=== PATIENT | male | born 1935 | race Caucasian/White ===

== ENCOUNTER 2019-09-15 14:46 | Inpatient (IN) ==
[2019-09-15] MEDS ORDERED: FUROSEMIDE 40 MG/4 ML VIAL IV STA (15:07)
[2019-09-15 15:35] LABS: Hematocrit (blood only) 43.5 % (42-52); Hemoglobin 12.3 g/dL (14.0-18.0); Mean Corpuscular Hemoglobin 26.5 pg (25-34); Mean Corpuscular Hgb Conc 28.3 g/dL (32-36); Mean Corpuscular Volume 93.8 fL (80-100); Mean Platelet Volume 10.7 fL (7.4-10.4); Platelet Count 188 K/uL (130-400); RDW Standard Deviation 67.2 fL (36.4-46.3); Red Blood Count 4.64 M/uL (4.7-6.1); White Blood Count 6.44 K/uL (4.8-10.8)
--- NOTE | 2019-09-15 15:36 | XRay Report ---
XR chest 1V portable CLINICAL HISTORY: Leg swelling. COMPARISON STUDY: Chest radiograph October 19, 2009. FINDINGS: Patient is mildly rotated. There is no pneumothorax. Note is made of mild cardiomegaly. The re are trace bilateral pleural effusions. There is pulmonary vascular congestion. IMPRESSION: Pulmonary vascular congestion with trace bilateral pleural effusions. ACT 112: Negative or not required by law. Results electronically sent 09/15/2019 3:35 PM to: Rajeev Portillo MD Electronically signed by: Tomy Shetty M.D. 09/15/2019 3:35 PM
[2019-09-15 15:45] LABS: Alanine Aminotransferase 16 U/L (12-78); Albumin Level 3.3 gm/dl (3.4-5.0); Aspartate Aminotransferase 20 U/L (15-37); BUN Creatinine Ratio 15.3 (10-20); Blood Urea Nitrogen 44 mg/dl (7-18); Calcium 8.6 mg/dl (8.5-10.1); Carbon Dioxide 26 mmol/L (21-32); Chloride 111 mmol/L (98-107); Creatinine Clr Calc Pharmacy 23.8 ml/min; Est GFR (African American) 22.2; Est GFR (Non-African American) 19.2; Glucose 142 mg/dl (70-99); Magnesium 2.4 mg/dl (1.8-2.4); Potassium 4.8 mmol/L (3.5-5.1); Sodium 142 mmol/L (136-145)
[2019-09-15 15:50] LABS: Albumin Globulin Ratio 0.9 (0.9-2); Alkaline Phosphatase 126 U/L (45-117); Bilirubin,Total 0.9 mg/dl (0.2-1); Globulin 3.5 gm/dl (2.5-4.0); NT Pro B Type Natriuretic Pept 6662 pg/ml (0-1800); Total Protein 6.8 gm/dl (6.4-8.2); Troponin I < 0.015 ng/ml (0-0.045)
[2019-09-15 15:52] LABS: INR 1.2 (0.9-1.1); Partial Thromboplastin Ratio 1.2; Partial Thromboplastin Time 32.8 Seconds (21.0-31.0); Prothrombin Time 11.9 Seconds (9.0-12.0)
[2019-09-15 15:56] LABS: Anisocytosis Present; Basophils # (auto) 0.05 K/uL (0-0.2); Basophils % (auto) 0.8 %; Eosinophils # (auto) 0.27 K/uL (0-0.5); Eosinophils % (auto) 4.2 %; Lymphocytes # (auto) 0.91 K/uL (1.2-3.4); Lymphocytes % (auto) 14.1 %; Neutrophils # (auto) 4.31 K/uL (1.4-6.5); Neutrophils % (auto) 66.9 %; Ovalocytes 1+
[2019-09-15 17:30] LABS: Appearance Urine Clear (Clear); Bacteria Urine Automated Negative (Negative); Bilirubin Urine Negative (Negative); Blood Urine 3+ (Negative); Color Urine Yellow; Glucose Urine UA Negative (Negative); Ketones Urine Negative (Negative); Leukocyte Esterase Urine Trace (Negative); Nitrite Urine Negative (Negative); Protein Urine Negative (Negative); RBC Urine Automated >30 /hpf (0-4); Specific Gravity Urine 1.013 (1.000-1.030); Urobilinogen Urine Negative (Negative)
--- NOTE | 2019-09-15 17:42 | History & Physical Report ---
Date of Service September 15, 2019 Assessment & Plan (1) Acute exacerbation of CHF (congestive heart failure): Admit to PCU on telemetry, Vital signs every 4 hours, Strict in and out, Daily weight, Given Lasix 40 mg IV x1 in the ER, continue Lasix 40 mg daily, and titrate up as needed to achieve 1.5 L negative fluid balance daily. Monitor kidney is in the same time because patient has CKD stage IV(possibly acute on chronic), [place] records are not available. DVT prophylaxis SCDs and teds, because patient has 3+ blood in urine so medical anticoagulation would probably cause hematuria, Start medical DVT prophylaxis after rechecking urine tomorrow. Physical and Occupational Therapy for gait and balance. Monitor electrolytes and replenish, Restrict free p.o. water intake to 1200 mils per day, Full code Present on Admission?: Yes (2) A-fib: Continue apixaban 2.5 mg p.o. twice daily. Present on Admission?: Yes (3) CKD (chronic kidney disease), stage IV: Hold pantoprazole 40 mg p.o. twice daily since it may worsen kidney function in the setting of CHF exacerbation. Avoid nephrotoxic agents. Per patient he was CKD stage III 1 month ago when he checked in with his computer lab para professional at [place]. Now creatinine is 2.88, worsening. Continue monitoring Present on Admission?: Yes (4) Leg swelling: Both lower extremities are edematous but right lower extremity is notably swollen that also covered with rash and warm and appears to be cellulitis. Started Zosyn empirically. Patient does not have elevated white blood cell count. Present on Admission?: Yes (5) Heart aneurysm: Will check TTE Consider consulting cardiology after receiving TTE result. Present on Admission?: Yes (6) Diabetes mellitus type 2 in obese: Accu-Cheks before meals and at bedtime, sliding scale insulin NovoLog correction factor of 20 and carbohydrate ratio of 7. Continue insulin glargine 19 units subacute nightly. Present on Admission?: Yes History of Present Illness Chief Complaint: Shortness of breath, weight gain right lower extremity cellulitis Primary Care Provider: Priti Saldivar MD The patient is an 83 years old male with past medical history of aneurysm of his heart?, Diabetes mellitus type 2, GERD , congestive heart failure, atrial fibrillation's and amiodarone, hypertension, COPD who was sent from the [facility] to [facility] (per patient and his family) to take care of his lower extremity edema and cellulitis associated with shortness of breath. Patient reports gaining at least 30 pounds in the past 2 months. Patient reports that his shortness of breath is worse on exertion and he has difficulty getting around in his house due to shortness of breath. Patient repo rts having a right lower extremity cellulitis for approximately 3 to 4 days and he was given Keflex 500 mg p.o. daily by his PCP at [place]. Patient denies fever, chills, chest pain, abdominal pain, frequency, urgency. Labs are reviewed: WBC 6.44, hemoglobin 12.3, hematocrit 43.5, platelets 188, PT 11.9, INR 1.2, APTT 32.8, sodium 142, potassium 4.8, chloride 111, carbon dioxide 26, anion gap 5, BUN 44, creatinine 2.88 (there is no other value in the system available since patient goes to [place] and his records are not sent with him, but patient reports that he has computer lab para professional at [facility] who follows him every couple of months), GFR 19.2, calcium 8.6, magnesium 2.4, total bilirubin 0.9, AST 20, ALT 16, alkaline phosphatase 126, troponin 0.015, BNP 6662, total protein 6.8, albumin 3.3, globulin 3.5. Urine is yellow clear 3+ blood, leukocyte Estrace trace, urine WBCs 1-5, RBCs 30. Chest x-rays pulmonary vascular congestion with trace bilateral pleural effusion. Decision was made to admit patient to PCU on telemetry for acute CHF exacerbation and right lower extremity cellulitis. Allergies Allergy/AdvReac Type Severity Reaction Status Date / Time chlorpropamide Allergy Unknown Unknown Verified 09/15/19 17:09 chlorthalidone Allergy Unknown Unknown Verified 09/15/19 17:09 Sulfa (Sulfonamide Allergy Unknown Hives Verified 09/15/19 17:09 Antibiotics) pravastatin AdvReac Unknown Muscle Pain Verified 09/15/19 17:09 simvastatin [From Zocor] AdvReac Unknown Muscle Pain Verified 09/15/19 17:09 Home Medications Home Medications Medication Instructions Recorded Confirmed Type albuterol sulfate 2 puff INHALATION 6XD PRN 09/15/19 09/15/19 History amlodipine 5 mg PO QAM 09/15/19 09/15/19 History apixaban 2.5 mg PO BID 09/15/19 09/15/19 History atenolol 50 mg PO QAM 09/15/19 09/15/19 History cephalexin 500 mg PO DAILY 09/15/19 09/15/19 History furosemide 20 mg PO QAM 09/15/19 09/15/19 History insulin aspart U-100 [Novolog 6 unit SUBCUT QAM 09/15/19 09/15/19 History U-100 Insulin aspart] insulin aspart U-100 [Novolog 10 unit SUBCUT QPM 09/15/19 09/15/19 History U-100 Insulin aspart] insulin glargine [Lantus U-100 35 unit SUBCUT HS 09/15/19 09/15/19 History Insulin] losartan 100 mg PO QAM 09/15/19 09/15/19 History pantoprazole 40 mg PO BID 09/15/19 09/15/19 History Past Med/Surg History Medical History A-fib Surgical History No pertinent past surgical history Family History Other No pertinent family history in first degree relatives Social History marital status: current occupational status: retired Feels Safe at Home: Yes Smoking Status: Former smoker Review of Systems Review of Systems: All systems reviewed & are unremarkable except as noted in HPI & below Physical Exam Constitutional: WD/WN, vitals as above well developed and + ill appearing Eyes: PERRL, conjunctivae normal, anicteric sclerae ENMT: external ear and nose normal, oropharynx normal Neck: trachea midline, no thyromegaly Respiratory: + respiratory distress, + labored breathing and + uses accessory muscles Auscultation: + crackles and + wheezes Cardiovascular: Rate/Rhythm: + irregularly irregular Heart Sounds: normal S1, normal S2 and + murmur Palpation: + palpable S4 Vessels: + JVD and dorsalis pedis pulses present Extremities: + pedal edema Gastrointestinal (Abdomen): normal bowel sounds, soft, nontender, no hepatosplenomegaly Musculoskeletal: no cyanosis or clubbing, extremities motor strength 5/5 Skin: no rashes, warm and dry Neurologic: patellar DTR's 2+ bilat, sensation intact Psychiatric: A+Ox3, euthymic affect Lymphatic: no cervical or axillary lymphadenopathy Results & Data Vital Signs (Past 12 Hours) Vital Signs Temp Pulse Resp BP Pulse Ox 09/15/19 17:00 73 25 H 82 L 09/15/19 16:30 78 19 92 09/15/19 16:01 71 16 116/87 90 09/15/19 16:00 63 24 91 09/15/19 15:52 66 24 143/87 H 92 09/15/19 15:30 71 17 131/78 92 09/15/19 15:05 73 22 91 09/15/19 15:03 36.5 C 71 18 141/97 H 90 09/15/19 15:00 65 25 H 141/97 H 91 Code Status & VTE Plan Code Status Full code VTE Prophylaxis Plan VTE Prophylaxis will be ordered: Yes PG Care Time/CCT Total # of Minutes Spent Total Time Spent with Patient: Total time spent is greater than 50% in coordination of care (as documented) at patient's floor/unit and/or counseling patient: Coding Level of Care Code 32868 Initial Inpt Care Lvl 3 Diagnoses Acute exacerbation of CHF (congestive heart failure) I50.9 Heart failure type: unspecified A-fib I48.91 CKD (chronic kidney disease), stage IV N18.4 Leg swelling M79.89 Heart aneurysm I25.3 Diabetes mellitus type 2 in obese E11.69; E66.9 (1) Acute exacerbation of CHF (congestive heart failure) Heart failure type: unspecified Qualified Code(s): I50.9 - Heart failure, unspecified
--- NOTE | 2019-09-15 17:47 | Emergency Department Note ---
Entered by Jess Basilio acting as a scribe for History of Present Illness General Chief complaint: Leg Injury/Pain Time Seen by Provider: 09/15/19 14:53 Source: patient History of Present Illness Onset (ago): month(s) (a few months) Location: lower extremity (right) Quality: + other (right leg swelling) Associated symptoms: + shortness of breath and + other (Positive redness. Negative recent changes in soaps, detergents, contacts with plants, tobacco use. 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 He reports he went to the [facility] for redness and swelling in his RLE and was referred to the ED. He notes he was short of breath recently and went to a handkerchief cutter who placed him on a nebulizer. The patient states he has had recent weight gain but denies recent changes in soaps, detergents, contacts with plants, tobacco use. Home Medications Home Medications Medication Instructions Recorded Confirmed Type albuterol sulfate 2 puff INHALATION 6XD PRN 09/15/19 09/15/19 History amlodipine 5 mg PO QAM 09/15/19 09/15/19 History apixaban 2.5 mg PO BID 09/15/19 09/15/19 History atenolol 50 mg PO QAM 09/15/19 09/15/19 History cephalexin 500 mg PO DAILY 09/15/19 09/15/19 History furosemide 20 mg PO QAM 09/15/19 09/15/19 History insulin aspart U-100 [Novolog 6 unit SUBCUT QAM 09/15/19 09/15/19 History U-100 Insulin aspart] insulin aspart U-100 [Novolog 10 unit SUBCUT QPM 09/15/19 09/15/19 History U-100 Insulin aspart] insulin glargine [Lantus U-100 35 unit SUBCUT HS 09/15/19 09/15/19 History Insulin] losartan 100 mg PO QAM 09/15/19 09/15/19 History pantoprazole 40 mg PO BID 09/15/19 09/15/19 History Allergies Allergy/AdvReac Type Severity Reaction Status Date / Time chlorpropamide Allergy Unknown Unknown Verified 09/15/19 17:09 chlorthalidone Allergy Unknown Unknown Verified 09/15/19 17:09 Sulfa (Sulfonamide Allergy Unknown Hives Verified 09/15/19 17:09 Antibiotics) pravastatin AdvReac Unknown Muscle Pain Verified 09/15/19 17:09 simvastatin [From Zocor] AdvReac Unknown Muscle Pain Verified 09/15/19 17:09 Past Med/Surg History Medical History A-fib Surgical History No pertinent past surgical history Family History Other No pertinent family history in first degree relatives Social History marital status: current occupational status: retired Feels Safe at Home: Yes Smoking Status: Former smoker Review of Systems See HPI for pertinent positives & negatives. and A total of 10 systems reviewed and were otherwise negative Physical Exam Vital Signs Vital Signs - 24 hr 09/15/19 15:00 09/15/19 15:03 09/15/19 15:05 Temperature 36.5 C Temperature Source Oral Pulse Rate 65 71 73 Pulse Rate from SpO2 Sensor 65 82 Respiratory Rate 25 H 18 22 Blood Pressure 141/97 H 141/97 H Blood Pressure Mean 103 111 Pulse Oximetry 91 90 91 Oxygen Delivery Method Room Air Sepsis Recent Fever Within 48 Hours No Sepsis Action Taken by Nursing No Action Required 09/15/19 15:30 09/15/19 15:52 09/15/19 16:00 Temperature Temperature Source Pulse Rate 71 66 63 Pulse Rate from SpO2 Sensor 72 55 L Respiratory Rate 17 24 24 Blood Pressure 131/78 143/87 H Blood Pressure Mean 93 97 Pulse Oximetry 92 92 91 Oxygen Delivery Method Room Air Sepsis Recent Fever Within 48 Hours Sepsis Action Taken by Nursing 09/15/19 16:01 09/15/19 16:30 09/15/19 17:00 Temperature Temperature Source Pulse Rate 71 78 73 Pulse Rate from SpO2 Sensor 73 82 70 Respiratory Rate 16 19 25 H Blood Pressure 116/87 Blood Pressure Mean 92 Pulse Oximetry 90 92 82 L Oxygen Delivery Method Sepsis Recent Fever Within 48 Hours Sepsis Action Taken by Nursing GENERAL: Well appearing, well nourished, NAD, non-toxic. Wearing glasses. EYE EXAM: Normal conjunctiva. PERRL, no anisocoria and EOM's grossly intact w/o pain. OROPHARYNX: Moist mucous membranes. Grossly normal dentition. NECK: Supple, no nuchal rigidity, no adenopathy, non-tender. No signs of meningismus. LUNGS: Clear to auscultation. Normal chest wall mechanics. HEART: NSR, no MRG. ABDOMEN: Abdomen soft, non-tender, normo-active bowel sounds, no masses, no rebound or guarding. BACK: No CVA TTP. SKIN: No bruising. Redness over RLE. UPPER EXTREMITIES: Upper extremities are grossly normal. LOWER EXTREMITIES: 4+ pitting edema bilaterally. Raised macular area over the mid medial right pelletier. Blanches, no crepitus. Not warm. Compartments soft. NVI distally. No calf pain. NEURO EXAM: A&O x3, cranial nerves II-XII grossly intact, normal speech, moves all 4 extremities on command w/o issue. Course Course 1500: Past medical records reviewed. The patient was evaluated in room B7. A complete history and physical exam was performed. 1614: Discussed the patient's case with Dr. Mendez, [facility] Hospitalist. The patient will be evaluated for further management. Administered Medications Discontinued Medications Furosemide (Lasix) 40 mg IV NOW STA Stop: 09/15/19 15:08 Last Admin: 09/15/19 15:56 Dose: 40 mg Documented by: [id number] Medical Decision Making Differential Diagnosis Differential diagnosis: Etiologies such as infections, reactive airway disease, pneumonia, pneumothorax, COPD, CHF, cardiac ischemia, pulmonary embolism, musculoskeletal, gastrointestinal, as well as others were entertained. Medical Records Attestation: I reviewed the patient's medical records. Home Medications Current Medication List: was personally reviewed by ne Laboratory Data Attestation: I reviewed the patient's lab results. Result diagrams: 09/15/19 15:10 09/15/19 15:10 Lab Results 09/15/19 09/15/19 09/15/19 Range/Units 15:10 15:10 15:10 WBC 6.44 (4.8-10.8) K/uL RBC 4.64 L (4.7-6.1) M/uL Hgb 12.3 L (14.0-18.0) g/dL Hct 43.5 (42-52) % MCV 93.8 (80-100) fL MCH 26.5 (25-34) pg MCHC 28.3 L (32-36) g/dL RDW Std Deviation 67.2 H (36.4-46.3) fL RDW Coeff of Yaima 20.0 H (11.5-14.5) % Plt Count 188 (130-400) K/uL MPV 10.7 H (7.4-10.4) fL Immature Gran % (Auto) 0.0 % Neut % (Auto) 66.9 % Lymph % (Auto) 14.1 % [place] % (Auto) 14.0 % Eos % (Auto) 4.2 % Baso % (Auto) 0.8 % Immature Gran # (Auto) 0.00 (0.00-0.02) K/uL Neut # (Auto) 4.31 (1.4-6.5) K/uL Lymph # (Auto) 0.91 L (1.2-3.4) K/uL [place] # (Auto) 0.90 H (0.11-0.59) K/uL Eos # (Auto) 0.27 (0-0.5) K/uL Baso # (Auto) 0.05 (0-0.2) K/uL Anisocytosis Present Ovalocytes 1+ PT 11.9 (9.0-12.0) Seconds INR 1.2 H (0.9-1.1) APTT 32.8 H (21.0-31.0) Seconds PTT Ratio 1.2 Sodium 142 (136-145) mmol/L Potassium 4.8 (3.5-5.1) mmol/L Chloride 111 H (98-107) mmol/L Carbon Dioxide 26 (21-32) mmol/L Anion Gap 5.0 (3-11) BUN 44 H (7-18) mg/dl Creatinine 2.88 H (0.6-1.4) mg/dl Est Cr Clr Drug Dosing 23.8 ml/min Est GFR ( Amer) 22.2 Est GFR (Non-Af Amer) 19.2 BUN/Creatinine Ratio 15.3 (10-20) Glucose 142 H (70-99) mg/dl Calcium 8.6 (8.5-10.1) mg/dl Magnesium 2.4 (1.8-2.4) mg/dl Total Bilirubin 0.9 (0.2-1) mg/dl AST 20 (15-37) U/L ALT 16 (12-78) U/L Alkaline Phosphatase 126 H (45-117) U/L Troponin I < 0.015 (0-0.045) ng/ml NT-Pro-B Natriuret Pep 6662 H (0-1800) pg/ml Total Protein 6.8 (6.4-8.2) gm/dl Albumin 3.3 L (3.4-5.0) gm/dl Globulin 3.5 (2.5-4.0) gm/dl Albumin/Globulin Ratio 0.9 (0.9-2) Urine Color Urine Appearance (Clear) Urine pH (4.5-7.5) Ur Specific Clare (1.000-1.030) Urine Protein (Negative) Urine Glucose (UA) (Negative) Urine Ketones (Negative) Urine Blood (Negative) Urine Nitrite (Negative) Urine Bilirubin (Negative) Urine Urobilinogen (Negative) Ur Leukocyte Esterase (Negative) Urine WBC (Auto) (0-5) /hpf Urine RBC (Auto) (0-4) /hpf U Hyaline Cast (Auto) (0-5) /lpf U Epithel Cells (Auto) (0-5) /lpf Urine Bacteria (Auto) (Negative) 09/15/19 Range/Units 17:00 WBC (4.8-10.8) K/uL RBC (4.7-6.1) M/uL Hgb (14.0-18.0) g/dL Hct (42-52) % MCV (80-100) fL MCH (25-34) pg MCHC (32-36) g/dL RDW Std Deviation (36.4-46.3) fL RDW Coeff of Yaima (11.5-14.5) % Plt Count (130-400) K/uL MPV (7.4-10.4) fL Immature Gran % (Auto) % Neut % (Auto) % Lymph % (Auto) % [place] % (Auto) % Eos % (Auto) % Baso % (Auto) % Immature Gran # (Auto) (0.00-0.02) K/uL Neut # (Auto) (1.4-6.5) K/uL Lymph # (Auto) (1.2-3.4) K/uL [place] # (Auto) (0.11-0.59) K/uL Eos # (Auto) (0-0.5) K/uL Baso # (Auto) (0-0.2) K/uL Anisocytosis Ovalocytes PT (9.0-12.0) Seconds INR (0.9-1.1) APTT (21.0-31.0) Seconds PTT Ratio Sodium (136-145) mmol/L Potassium (3.5-5.1) mmol/L Chloride (98-107) mmol/L Carbon Dioxide (21-32) mmol/L Anion Gap (3-11) BUN (7-18) mg/dl Creatinine (0.6-1.4) mg/dl Est Cr Clr Drug Dosing ml/min Est GFR ( Amer) Est GFR (Non-Af Amer) BUN/Creatinine Ratio (10-20) Glucose (70-99) mg/dl Calcium (8.5-10.1) mg/dl Magnesium (1.8-2.4) mg/dl Total Bilirubin (0.2-1) mg/dl AST (15-37) U/L ALT (12-78) U/L Alkaline Phosphatase (45-117) U/L Troponin I (0-0.045) ng/ml NT-Pro-B Natriuret Pep (0-1800) pg/ml Total Protein (6.4-8.2) gm/dl Albumin (3.4-5.0) gm/dl Globulin (2.5-4.0) gm/dl Albumin/Globulin Ratio (0.9-2) Urine Color Yellow Urine Appearance Clear (Clear) Urine pH 5.0 (4.5-7.5) Ur Specific Clare 1.013 (1.000-1.030) Urine Protein Negative (Negative) Urine Glucose (UA) Negative (Negative) Urine Ketones Negative (Negative) Urine Blood 3+ H (Negative) Urine Nitrite Negative (Negative) Urine Bilirubin Negative (Negative) Urine Urobilinogen Negative (Negative) Ur Leukocyte Esterase Trace H (Negative) Urine WBC (Auto) 1-5 (0-5) /hpf Urine RBC (Auto) >30 H (0-4) /hpf U Hyaline Cast (Auto) 1-5 (0-5) /lpf U Epithel Cells (Auto) 5-10 H (0-5) /lpf Urine Bacteria (Auto) Negative (Negative) Imaging Data Radiologist's Impression: Radiology results as stated below per my review and the radiologist's interpretation: XR chest 1V portable CLINICAL HISTORY: Leg swelling. COMPARISON STUDY: Chest radiograph October 19, 2009. FINDINGS: Patient is mildly rotated. There is no pneumothorax. Note is made of mild cardiomegaly. There are trace bilateral pleural effusions. There is pulmonary vascular congestion. IMPRESSION: Pulmonary vascular congestion with trace bilateral pleural effusions. ACT 112: Negative or not required by law. Results electronically sent 09/15/2019 3:35 PM to: Rajeev Portillo MD Electronically signed by: Tomy Shetty M.D. 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 Cardiac monitoring: An order was placed for continuous cardiac monitoring. The monitor shows a rate of 71 and likely sinus rhythm. Patient was seen and evaluated at the bedside. [facility] extremity swelling associated redness. The patient states is been ongoing for several months. He is noticed some weight gain and some shortness of breath. He was recently seen by pulmonology and started on nebulizer which he stated did improve some of his symptoms. The patient's lower extremity swelling is impressive with 4+ pitting edema bilaterally. The patient does have redness on the right. Does not feel warm does appear raised potentially more consistent with may be a contact dermatitis. No fluctuance crepitus or drainage. Patient did a bladder completed was given IV Lasix and chest x-ray was also completed. Patient's chest x-ray does show bilateral pleural effusions. The patient may have acute or chronic CKD but no priors for comparison. Patient is already on home Lasix and I believe that he is volume overloaded given his history and physical exam as well as his blood work. The patient's BNP is elevated. Troponin is not detectable. Patient has a normal white count. I do believe that the patient's lower extremity redness is more consistent with may be a dermatitis or vasculitis. Do not believe he requires antibiotics at this time and will defer to the inpatient team. Patient's urinalysis does not appear overtly infected. The patient's EKG did have affirmative motion artifact patient does have a known history of A. fib. The patient does appear to be more regular with PVCs. The patient is currently in a sinus rhythm based on what I can see on the patient's cardiac care nurse. Patient is already anticoagulated on apixaban. Impression & Plan Acute exacerbation of CHF (congestive heart failure), Leg swelling, CKD (chronic kidney disease), stage IV Discharge Plan Visit Data Chief Complaint: Leg Injury/Pain ED Provider: Rajeev Portillo Discharge Problem: Acute exacerbation of CHF (congestive heart failure), Leg swelling, CKD (chronic kidney disease), stage IV Patient Disposition: Being Evaluated by Hospitalist Forms Stand Alone Forms: My [facility] Prescriptions Prescriptions: No Action amlodipine 5 mg Tablet 5 mg PO QAM RF: 0 cephalexin 500 mg Capsule 500 mg PO DAILY RF: 0 furosemide 20 mg Tablet 20 mg PO QAM RF: 0 albuterol sulfate 90 mcg/actuation Hfa Aerosol Inhaler 2 puff INHALATION 6XD PRN (Reason: Shortness Of Breath) RF: 0 losartan 100 mg Tablet 100 mg PO QAM RF: 0 atenolol 50 mg Tablet 50 mg PO QAM RF: 0 apixaban 2.5 mg Tablet 2.5 mg PO BID RF: 0 Lantus U-100 Insulin 100 unit/mL Solution 35 unit SUBCUT HS RF: 0 insulin aspart U-100 [Novolog U-100 Insulin aspart] 100 unit/mL Solution 6 unit SUBCUT QAM RF: 0 insulin aspart U-100 [Novolog U-100 Insulin aspart] 100 unit/mL Solution 10 unit SUBCUT QPM RF: 0 pantoprazole 40 mg Tablet,Delayed Release (Dr/Ec) 40 mg PO BID RF: 0 Referrals Referrals: Priti Saldivar MD [Primary Care Provider] - Discharge Problem: Acute exacerbation of CHF (congestive heart failure) Qualifiers: Heart failure type: unspecified Qualified Code(s): I50.9 - Heart failure, unspecified The scribe's documentation has been prepared under my direction and personally reviewed by me in its entirety. I confirm that the note above accurately reflects all work, treatment, procedures, and medical decision making performed by me.
[2019-09-15] MEDS ORDERED: CARBOHYDRATES FOR HYPOGLYCEMIA PO PRN (19:14)
[2019-09-15] MEDS ORDERED: ONDANSETRON INJ 2 MG/ML 2 ML VIAL IV PRN (19:14)
[2019-09-15] MEDS ORDERED: GLUCAGON FOR INJ 1 MG VIAL SQ PRN (19:14)
[2019-09-15] MEDS ORDERED: GLUCOSE 10 TABS/TUBE PO PRN (19:14)
[2019-09-15] MEDS ORDERED: ALUMINUM/MAGNESIUM SUSP 30 ML UDC PO PRN (19:14)
[2019-09-15] MEDS ORDERED: ALBUTEROL HFA 8 GM INHALER INH PRN (19:14)
[2019-09-15] MEDS ORDERED: GLUCOSE 40% GEL 15 GM TUBE PO PRN (19:14)
[2019-09-15] MEDS ORDERED: PIPERACILLIN/TAZOBACTAM 4.5 GM/120 ML BAG IV ONE (19:14)
[2019-09-15] MEDS ORDERED: ACETAMINOPHEN 325 MG TAB PO PRN (19:14)
[2019-09-15] MEDS ORDERED: POLYETHYLENE (MIRALAX) 17 GM PACK PO PRN (19:14)
[2019-09-15] MEDS ORDERED: MAGNESIUM HYDROXIDE SUSP 30 ML UDC PO PRN (19:14)
[2019-09-15] MEDS ORDERED: PIPERACILL/TAZOBAC CONSULT ACTIVE PRN ×2 (19:14)
[2019-09-15] MEDS ORDERED: DEXTROSE 50% 50 ML SYRINGE IV PRN (19:14)
[2019-09-15] MEDS ORDERED: PIPERACILLIN/TAZOBACTAM 3.375 GM in DEXTROSE 5% 100 ML IV ONE (19:45)
--- NOTE | 2019-09-15 20:44 | Ultrasound Report ---
BILATERAL LOWER EXTREMITY VENOUS DOPPLER HISTORY: Acute pain and swelling of the bilateral lower extremities possible DVT COMPARISON STUDY: Doppler study 05/25/2012 FINDINGS: There is normal compressibility, flow, and augmentation within the bilateral lower extremit y deep venous systems. Study is limited secondary to subcutaneous edema of the lower legs. IMPRESSION: No DVT within the right or left lower extremity. ACT 112: Negative or not required by law. Results electronically sent 09/15/2019 8:43 PM to: Romina Mendez MD Electronically signed by: Jam Davis M.D. 09/15/2019 8:43 PM
[2019-09-15] MEDS: INSULIN ASPART 100 UNITS/ML 3 ML PEN SC SCH (20:47)
[2019-09-15] MEDS ORDERED: HEPARIN SOD 5,000 UNIT/0.5 ML VIAL SQ SCH (21:00)
[2019-09-15] MEDS: INSULIN GLARGINE SOLOSTAR 100 UNITS/ML 3 ML PEN SC SCH (21:01)
[2019-09-15] MEDS: APIXABAN 2.5 MG TAB PO SCH (21:01)
--- NOTE | 2019-09-15 22:39 | Electrocardiogram Report ---
Test Reason : Blood Pressure : / mmHG Vent. Rate : 070 BPM Atrial Rate : 073 BPM P-R Int : 000 ms QRS Dur : 126 ms QT Int : 422 ms P-R-T Axes : 000 -53 043 degrees QTc Int : 455 ms Atrial fibrillation with premature ventricular or aberrantly conducted complexes Left axis deviation Right bundle branch block Inferior infarct , age undetermined Abnormal ECG No previous ECGs available Confirmed by Diogenes Stevenson ([id number]) on 09/15/2019 10:39:30 PM Referred By: Bubba Wyatt Confirmed By:Diogenes Stevenson
[2019-09-16] MEDS: PIPERACILLIN/TAZOBACTAM 3.375 GM in DEXTROSE 5% 100 ML IV SCH ×3 (02:15→16:57)
[2019-09-16 06:32] LABS: Hematocrit (blood only) 41.6 % (42-52); Hemoglobin 11.7 g/dL (14.0-18.0); Mean Corpuscular Hemoglobin 26.5 pg (25-34); Mean Corpuscular Hgb Conc 28.1 g/dL (32-36); Mean Corpuscular Volume 94.3 fL (80-100); Platelet Count 163 K/uL (130-400); RDW Standard Deviation 68.6 fL (36.4-46.3); Red Blood Count 4.41 M/uL (4.7-6.1); White Blood Count 5.35 K/uL (4.8-10.8)
[2019-09-16 06:47] LABS: Anisocytosis Present; Basophils # (auto) 0.06 K/uL (0-0.2); Basophils % (auto) 1.1 %; Eosinophils # (auto) 0.29 K/uL (0-0.5); Eosinophils % (auto) 5.4 %; Immature Granulocytes # (auto) 0.01 K/uL (0.00-0.02); Immature Granulocytes % (auto) 0.2 %; Lymphocytes # (auto) 0.79 K/uL (1.2-3.4); Lymphocytes % (auto) 14.8 %; Monocytes # (auto) 0.72 K/uL (0.11-0.59); Monocytes % (auto) 13.5 %; Neutrophils # (auto) 3.48 K/uL (1.4-6.5)
[2019-09-16 06:53] LABS: Albumin Level 2.9 gm/dl (3.4-5.0); BUN Creatinine Ratio 17.8 (10-20); Calcium 8.9 mg/dl (8.5-10.1); Creatinine Clr Calc Pharmacy 26.7 ml/min; Est GFR (African American) 26.3; Est GFR (Non-African American) 22.7; Potassium 4.4 mmol/L (3.5-5.1)
[2019-09-16 06:57] LABS: Albumin Globulin Ratio 0.9 (0.9-2); Bilirubin,Total 1.2 mg/dl (0.2-1); Globulin 3.1 gm/dl (2.5-4.0)
[2019-09-16 07:52] LABS: Estimated Average Glucose 146 mg/dl; Hemoglobin A1C 6.7 % (4.5-5.6)
[2019-09-16] MEDS: LOSARTAN POTASSIUM 50 MG TAB PO SCH (08:53)
[2019-09-16] MEDS: ATENOLOL 50 MG TABLET PO SCH (08:53)
[2019-09-16] MEDS: AMLODIPINE BESYLATE 5 MG TAB PO SCH (08:53)
[2019-09-16] MEDS: APIXABAN 2.5 MG TAB PO SCH ×2 (08:53→20:36)
[2019-09-16] MEDS: INSULIN ASPART 100 UNITS/ML 3 ML PEN SC SCH ×4 (08:54→20:38)
[2019-09-16] MEDS ORDERED: FUROSEMIDE 40 MG/4 ML VIAL IV SCH (09:00)
[2019-09-16] MEDS ORDERED: FUROSEMIDE 40 MG in SYRINGE 0 ML IV SCH (09:00)
--- NOTE | 2019-09-16 13:43 | Hospitalist Progress Note ---
Date of Service September 16, 2019 Assessment & Plan (1) Acute exacerbation of CHF (congestive heart failure): unclear if this is preserved or reduced EF heart failure over weight by about 30-40 lbs according to patient will check echocardiogram good response to Lasix 40mg IV, negative over 2 liters today daily weighs, strict I/O's, fluid restrict to 1200mL a day will change diuretic to Bumex 1mg IV q12 due to bioavailability with renal disease follow up on diuresis and renal function tomorrow should prop up feet when in bed PT/OT consulted (2) A-fib: Continue apixaban 2.5 mg p.o. twice daily. HR controlled on monitor (3) CKD (chronic kidney disease), stage IV: Hold pantoprazole 40 mg p.o. twice daily since it may worsen kidney function in the setting of CHF exacerbation. Avoid nephrotoxic agents. 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 Continue insulin glargine 19 units subacute nightly. monitor for hypoglycemia, no episodes Admission and Anticipated Discharge Date Admission Date: September 15, 2019 Subjective patient doing well today, making urine via diaz, negative over 2 liters today has some decreased swelling in legs, but still with significant edema he states that weight up to 210 in the office yesterday, used to be 170 no dyspnea, no wheezing, no cough, no chest pain he says that his legs have been discolored for a few months, dark red no pain, no fever/chills reviewed labs, Cr down slightly from 2.8 to 2.4 with the Lasix 40mg IV updated family at the bedside Review of Systems Review of Systems: All systems reviewed & are unremarkable except as noted in HPI & below Constitutional: + weight gain (30-40 lbs in a year); no fever Respiratory: no cough, no dyspnea, no dyspnea on exertion and no wheezing Cardiovascular: + edema (pitting edema up to thighs bilaterally); no chest pain and no palpitations Gastrointestinal: no abdominal pain, no nausea, no vomiting, no constipation and no diarrhea/loose stools Integumentary: + erythema (venous stasis changes in legs) Physical Exam Constitutional: WD/WN, vitals as above + overweight Eyes: PERRL, conjunctivae normal, anicteric sclerae ENMT: external ear and nose normal, oropharynx normal Neck: trachea midline, no thyromegaly Respiratory: normal respiratory effort, lungs clear to auscultation Cardiovascular: Rate/Rhythm: regular rate and regular rhythm Heart Sounds: normal S1 and normal S2; no murmur Extremities: normal capillary refill and + edema (pitting edema to the thighs bilaterally) Gastrointestinal (Abdomen): normal bowel sounds, soft, nontender, no hepatosplenomegaly Musculoskeletal: no cyanosis or clubbing, extremities motor strength 5/5 Skin: no rashes, warm and dry + erythema (bilateral venous stasis changes, more on the right lower leg) Neurologic: patellar DTR's 2+ bilat, sensation intact and PERRL, EOMI, accommodation nl, no face palsy, no dysarthria Psychiatric: A+Ox3, euthymic affect Lymphatic: no cervical or axillary lymphadenopathy Results & Data ([facility]) Vital Signs (Past 12 Hours) Vital Signs Temp Pulse Pulse Pulse Resp BP BP 09/16/19 11:32 36.7 C 69 18 111/55 L 09/16/19 07:46 73 09/16/19 07:40 36.6 C 72 18 126/73 09/16/19 03:18 36.4 C L 57 L 18 110/67 Pulse Ox 09/16/19 11:32 90 09/16/19 07:46 09/16/19 07:40 90 09/16/19 03:18 90 Laboratory Results Laboratory Results - last 24 hr 09/15/19 09/16/19 09/16/19 21:45 05:55 05:55 WBC 5.35 RBC 4.41 L Hgb 11.7 L Hct 41.6 L MCV 94.3 MCH 26.5 MCHC 28.1 L RDW Std Deviation 68.6 H RDW Coeff of Yaima 20.0 H Plt Count 163 MPV 11.0 H Immature Gran % (Auto) 0.2 Neut % (Auto) 65.0 Lymph % (Auto) 14.8 Kidder % (Auto) 13.5 Eos % (Auto) 5.4 Baso % (Auto) 1.1 Immature Gran # (Auto) 0.01 Neut # (Auto) 3.48 Lymph # (Auto) 0.79 L Kidder # (Auto) 0.72 H Eos # (Auto) 0.29 Baso # (Auto) 0.06 Anisocytosis Present Sodium 143 Potassium 4.4 Chloride 111 H Carbon Dioxide 27 Anion Gap 6.0 BUN 45 H Creatinine 2.50 H D Est Cr Clr Drug Dosing 26.7 Est GFR ( Amer) 26.3 Est GFR (Non-Af Amer) 22.7 BUN/Creatinine Ratio 17.8 Glucose 90 POC Glucose Estimat Average Glucose Hemoglobin A1c Calcium 8.9 Total Bilirubin 1.2 H AST 16 ALT 13 Alkaline Phosphatase 104 NT-Pro-B Natriuret Pep 6195 H Total Protein 6.0 L Albumin 2.9 L Globulin 3.1 Albumin/Globulin Ratio 0.9 Nasal Screen MRSA (PCR) Negative 09/16/19 09/16/19 09/16/19 05:55 07:20 11:14 WBC RBC Hgb Hct MCV MCH MCHC RDW Std Deviation RDW Coeff of Yaima Plt Count MPV Immature Gran % (Auto) Neut % (Auto) Lymph % (Auto) Kidder % (Auto) Eos % (Auto) Baso % (Auto) Immature Gran # (Auto) Neut # (Auto) Lymph # (Auto) Kidder # (Auto) Eos # (Auto) Baso # (Auto) Anisocytosis Sodium Potassium Chloride Carbon Dioxide Anion Gap BUN Creatinine Est Cr Clr Drug Dosing Est GFR ( Amer) Est GFR (Non-Af Amer) BUN/Creatinine Ratio Glucose POC Glucose 88 116 H Estimat Average Glucose 146 Hemoglobin A1c 6.7 H Calcium Total Bilirubin AST ALT Alkaline Phosphatase NT-Pro-B Natriuret Pep Total Protein Albumin Globulin Albumin/Globulin Ratio Nasal Screen MRSA (PCR) 09/16/19 09/16/19 16:03 19:53 WBC RBC Hgb Hct MCV MCH MCHC RDW Std Deviation RDW Coeff of Yaima Plt Count MPV Immature Gran % (Auto) Neut % (Auto) Lymph % (Auto) Kidder % (Auto) Eos % (Auto) Baso % (Auto) Immature Gran # (Auto) Neut # (Auto) Lymph # (Auto) Kidder # (Auto) Eos # (Auto) Baso # (Auto) Anisocytosis Sodium Potassium Chloride Carbon Dioxide Anion Gap BUN Creatinine Est Cr Clr Drug Dosing Est GFR ( Amer) Est GFR (Non-Af Amer) BUN/Creatinine Ratio Glucose POC Glucose 149 H 148 H Estimat Average Glucose Hemoglobin A1c Calcium Total Bilirubin AST ALT Alkaline Phosphatase NT-Pro-B Natriuret Pep Total Protein Albumin Globulin Albumin/Globulin Ratio Nasal Screen MRSA (PCR) Medications Administered Current Inpatient Medications Acetaminophen (Tylenol) 650 mg PO Q4H PRN PRN Reason: Pain or Fever Stop: 10/15/19 19:13 Al Hydrox/Mg Hydrox/Simethicone (Maalox) 15 ml PO Q4H PRN PRN Reason: Dyspepsia Stop: 10/15/19 19:13 Albuterol (Ventolin Hfa) 2 puffs INH Q4H PRN PRN Reason: Shortness Of Breath Stop: 10/15/19 19:13 Amlodipine Besylate (Norvasc) 5 mg PO QAM [facility] Stop: 10/16/19 08:59 Last Admin: 09/16/19 08:53 Dose: 5 mg Documented by: Apixaban (Eliquis) 2.5 mg PO BID [facility] Stop: 10/15/19 20:59 Last Admin: 09/16/19 20:36 Dose: 2.5 mg Documented by: Atenolol (Tenormin) 50 mg PO QAM [facility] Stop: 10/16/19 08:59 Last Admin: 09/16/19 08:53 Dose: 50 mg Documented by: Dextrose (Dextrose 50%) 25 - 50 ml IV UD PRN; Protocol PRN Reason: Hypoglycemia Protocol Stop: 10/15/19 19:13 Glucagon (Glucagen) 1 mg SQ UD PRN; Protocol PRN Reason: Hypoglycemia Protocol Stop: 10/15/19 19:13 Glucose (Dex4 Glucose) 4 - 8 tabs PO UD PRN; Protocol PRN Reason: Hypoglycemia Protocol Stop: 10/15/19 19:13 Glucose (Glucose 40%) 15 - 30 gm PO UD PRN; Protocol PRN Reason: Hypoglycemia Protocol Stop: 10/15/19 19:13 Piperacillin Sod/Tazobactam (Sod 3.375 gm/ Dextrose) 115 mls @ 28.75 mls/hr IV Q8H [facility]; Protocol Stop: 09/23/19 01:59 Last Infusion: 09/16/19 20:59 Dose: Infused Documented by: Bumetanide 1 mg/ Syringe 4 mls @ 4 mls/min IV DAILY@0900,1700 [facility] Stop: 10/16/19 16:59 Last Admin: 09/16/19 16:56 Dose: 4 mls/min Documented by: Insulin Aspart (Novolog Flexpen) 0 units SC ACHS [facility] Stop: 10/15/19 20:59 Last Admin: 09/16/19 20:38 Dose: 4 units Documented by: Insulin Glargine (Lantus Solostar Pen) 19 units SC HS [facility] Stop: 10/15/19 20:59 Last Admin: 09/16/19 20:36 Dose: 19 units Documented by: Losartan Potassium (Cozaar) 100 mg PO QAM [facility] Stop: 10/16/19 08:59 Last Admin: 09/16/19 08:53 Dose: 100 mg Documented by: Magnesium Hydroxide (Milk Of Magnesia) 30 ml PO Q12H PRN PRN Reason: Constipation Stop: 10/15/19 19:13 Miscellaneous (Carbohydrates For Hypoglycemia) 15 - 30 gm PO UD PRN PRN Reason: Hypoglycemia Protocol Stop: 10/15/19 19:13 Miscellaneous Information (Consult) 1 ea N/A UD PRN PRN Reason: Consult Stop: 10/15/19 19:13 Ondansetron HCl (Zofran) 4 mg IV Q6H PRN PRN Reason: Nausea Stop: 10/15/19 19:13 Polyethylene Glycol (Miralax Powder Packet) 17 gm PO DAILY PRN PRN Reason: Constipation Stop: 10/15/19 19:13 PG Care Time/CCT Total # of Minutes Spent Total Time Spent with Patient: Total time spent is greater than 50% in coordination of care (as documented) at patient's floor/unit and/or counseling patient: Coding Level of Care Code 96455 Subseq Hosp Care Lvl 3 Diagnoses Acute exacerbation of CHF (congestive heart failure) I50.9 Heart failure type: unspecified A-fib I48.91 CKD (chronic kidney disease), stage IV N18.4 Leg swelling M79.89 Heart aneurysm I25.3 Diabetes mellitus type 2 in obese E11.69; E66.9 (1) Acute exacerbation of CHF (congestive heart failure) Heart failure type: unspecified Qualified Code(s): I50.9 - Heart failure, unspecified
[2019-09-16] MEDS: BUMETANIDE 1 MG in SYRINGE 0 ML IV SCH (16:56)
[2019-09-16] MEDS: INSULIN GLARGINE SOLOSTAR 100 UNITS/ML 3 ML PEN SC SCH (20:36)
[2019-09-17 07:25] LABS: Hematocrit (blood only) 41.7 % (42-52); Hemoglobin 11.8 g/dL (14.0-18.0); Mean Corpuscular Hemoglobin 26.2 pg (25-34); Mean Corpuscular Hgb Conc 28.3 g/dL (32-36); Mean Corpuscular Volume 92.7 fL (80-100); Mean Platelet Volume 10.6 fL (7.4-10.4); Platelet Count 161 K/uL (130-400); RDW Standard Deviation 66.8 fL (36.4-46.3); White Blood Count 5.03 K/uL (4.8-10.8)
[2019-09-17 07:31] LABS: Anisocytosis Present; Basophils # (auto) 0.04 K/uL (0-0.2); Basophils % (auto) 0.8 %; Eosinophils # (auto) 0.35 K/uL (0-0.5); Immature Granulocytes # (auto) 0.01 K/uL (0.00-0.02); Immature Granulocytes % (auto) 0.2 %; Lymphocytes % (auto) 15.9 %; Monocytes # (auto) 0.63 K/uL (0.11-0.59); Monocytes % (auto) 12.5 %; Neutrophils % (auto) 63.6 %; Polychromasia 1+; Target Cells 1+
[2019-09-17 07:43] LABS: Albumin Level 2.9 gm/dl (3.4-5.0); BUN Creatinine Ratio 17.2 (10-20); Calcium 8.8 mg/dl (8.5-10.1); Creatinine Clr Calc Pharmacy 25.9 ml/min; Est GFR (African American) 25.7; Est GFR (Non-African American) 22.2; Potassium 4.3 mmol/L (3.5-5.1)
[2019-09-17 07:46] LABS: Albumin Globulin Ratio 0.9 (0.9-2); Globulin 3.3 gm/dl (2.5-4.0); Total Protein 6.2 gm/dl (6.4-8.2)
[2019-09-17] MEDS: INSULIN ASPART 100 UNITS/ML 3 ML PEN SC SCH ×4 (08:05→20:22)
[2019-09-17] MEDS: ATENOLOL 50 MG TABLET PO SCH (08:05)
[2019-09-17] MEDS: AMLODIPINE BESYLATE 5 MG TAB PO SCH (08:05)
[2019-09-17] MEDS: LOSARTAN POTASSIUM 50 MG TAB PO SCH (08:05)
[2019-09-17] MEDS: APIXABAN 2.5 MG TAB PO SCH ×2 (08:05→20:21)
[2019-09-17] MEDS: BUMETANIDE 1 MG in SYRINGE 0 ML IV SCH ×2 (08:05→18:03)
[2019-09-17] MEDS: INSULIN GLARGINE SOLOSTAR 100 UNITS/ML 3 ML PEN SC SCH ×2 (08:06→20:21)
--- NOTE | 2019-09-17 13:52 | Hospitalist Progress Note ---
Date of Service September 17, 2019 Assessment & Plan (1) Acute exacerbation of CHF (congestive heart failure): unclear if this is preserved or reduced EF heart failure over weight by about 30-40 lbs according to patient echocardiogram performed this morning, still needs to be read continue Bumex 1mg IV q12, negative 4.5 liters via diaz, Cr is holding at 2.55, K is stable daily weighs, strict I/O's, fluid restrict to 1200mL a day should prop up feet when in bed PT/OT consulted likely here a few days for monitoring while diuresing (2) A-fib: Continue apixaban 2.5 mg p.o. twice daily. HR controlled on monitor (3) CKD (chronic kidney disease), stage IV: Hold pantoprazole 40 mg p.o. twice daily since it may worsen kidney function in the setting of CHF exacerbation. Avoid nephrotoxic agents. 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 Continue insulin glargine 19 units subacute nightly. monitor for hypoglycemia, no episodes today Admission and Anticipated Discharge Date Admission Date: September 15, 2019 Subjective patient feeling well, continues to respond well to Bumex negative 4.5 liters today, breathing well, less edema in legs his appetite is good, normal for him no chest pain/pressure, no nausea/vomiting, no constipation vitals stable CBC normal, Cr is 2.55, K is 4.3 discussed with patient that we will keep him here this weekend, closely monitor renal function Review of Systems Review of Systems: All systems reviewed & are unremarkable except as noted in HPI & below Constitutional: + weight gain (prior to admission); no fever and no sweats Respiratory: + dyspnea on exertion; no cough and no dyspnea Cardiovascular: + edema; no chest pain Gastrointestinal: no abdominal pain, no nausea, no vomiting, no constipation and no diarrhea/loose stools Physical Exam Constitutional: WD/WN, vitals as above + overweight Eyes: PERRL, conjunctivae normal, anicteric sclerae ENMT: external ear and nose normal, oropharynx normal Neck: trachea midline, no thyromegaly Respiratory: normal respiratory effort, lungs clear to auscultation Cardiovascular: Rate/Rhythm: regular rate and regular rhythm Heart Sounds: normal S1 and normal S2; no murmur Extremities: normal capillary refill and + edema (pitting edema to the thighs bilaterally) Gastrointestinal (Abdomen): normal bowel sounds, soft, nontender, no hepatosplenomegaly Musculoskeletal: no cyanosis or clubbing, extremities motor strength 5/5 Skin: no rashes, warm and dry + erythema (bilateral venous stasis changes, more on the right lower leg) Neurologic: patellar DTR's 2+ bilat, sensation intact and PERRL, EOMI, accommodation nl, no face palsy, no dysarthria Psychiatric: A+Ox3, euthymic affect Lymphatic: no cervical or axillary lymphadenopathy Results & Data ([facility]) Vital Signs (Past 12 Hours) Vital Signs Temp Pulse Pulse Pulse Resp BP BP 09/17/19 11:46 36.6 C 78 18 133/69 09/17/19 07:47 36.4 C L 72 22 123/64 09/17/19 07:34 68 09/17/19 04:34 09/17/19 03:51 36.9 C 74 19 127/72 Pulse Ox 09/17/19 11:46 93 09/17/19 07:47 99 09/17/19 07:34 09/17/19 04:34 91 09/17/19 03:51 87 L Laboratory Results Laboratory Results - last 24 hr 09/16/19 09/16/19 09/17/19 16:03 19:53 06:38 WBC 5.03 RBC 4.50 L Hgb 11.8 L Hct 41.7 L MCV 92.7 MCH 26.2 MCHC 28.3 L RDW Std Deviation 66.8 H RDW Coeff of Yaima 20.0 H Plt Count 161 MPV 10.6 H Immature Gran % (Auto) 0.2 Neut % (Auto) 63.6 Lymph % (Auto) 15.9 Brewster % (Auto) 12.5 Eos % (Auto) 7.0 Baso % (Auto) 0.8 Immature Gran # (Auto) 0.01 Neut # (Auto) 3.20 Lymph # (Auto) 0.80 L Brewster # (Auto) 0.63 H Eos # (Auto) 0.35 Baso # (Auto) 0.04 Polychromasia 1+ Anisocytosis Present Target Cells 1+ Sodium Potassium Chloride Carbon Dioxide Anion Gap BUN Creatinine Est Cr Clr Drug Dosing Est GFR ( Amer) Est GFR (Non-Af Amer) BUN/Creatinine Ratio Glucose POC Glucose 149 H 148 H Calcium Total Bilirubin AST ALT Alkaline Phosphatase Total Protein Albumin Globulin Albumin/Globulin Ratio 09/17/19 09/17/19 06:38 12:11 WBC RBC Hgb Hct MCV MCH MCHC RDW Std Deviation RDW Coeff of Yaima Plt Count MPV Immature Gran % (Auto) Neut % (Auto) Lymph % (Auto) Brewster % (Auto) Eos % (Auto) Baso % (Auto) Immature Gran # (Auto) Neut # (Auto) Lymph # (Auto) Brewster # (Auto) Eos # (Auto) Baso # (Auto) Polychromasia Anisocytosis Target Cells Sodium 144 Potassium 4.3 Chloride 109 H Carbon Dioxide 31 Anion Gap 4.0 BUN 44 H Creatinine 2.55 H Est Cr Clr Drug Dosing 25.9 Est GFR ( Amer) 25.7 Est GFR (Non-Af Amer) 22.2 BUN/Creatinine Ratio 17.2 Glucose 114 H POC Glucose 94 Calcium 8.8 Total Bilirubin 1.0 AST 14 L ALT 13 Alkaline Phosphatase 106 Total Protein 6.2 L Albumin 2.9 L Globulin 3.3 Albumin/Globulin Ratio 0.9 Medications Administered Current Inpatient Medications Acetaminophen (Tylenol) 650 mg PO Q4H PRN PRN Reason: Pain or Fever Stop: 10/15/19 19:13 Al Hydrox/Mg Hydrox/Simethicone (Maalox) 15 ml PO Q4H PRN PRN Reason: Dyspepsia Stop: 10/15/19 19:13 Albuterol (Ventolin Hfa) 2 puffs INH Q4H PRN PRN Reason: Shortness Of Breath Stop: 10/15/19 19:13 Amlodipine Besylate (Norvasc) 5 mg PO QAM [facility] Stop: 10/16/19 08:59 Last Admin: 09/17/19 08:05 Dose: 5 mg Documented by: Apixaban (Eliquis) 2.5 mg PO BID [facility] Stop: 10/15/19 20:59 Last Admin: 09/17/19 08:05 Dose: 2.5 mg Documented by: Atenolol (Tenormin) 50 mg PO QAM [facility] Stop: 10/16/19 08:59 Last Admin: 09/17/19 08:05 Dose: 50 mg Documented by: Dextrose (Dextrose 50%) 25 - 50 ml IV UD PRN; Protocol PRN Reason: Hypoglycemia Protocol Stop: 10/15/19 19:13 Glucagon (Glucagen) 1 mg SQ UD PRN; Protocol PRN Reason: Hypoglycemia Protocol Stop: 10/15/19 19:13 Glucose (Dex4 Glucose) 4 - 8 tabs PO UD PRN; Protocol PRN Reason: Hypoglycemia Protocol Stop: 10/15/19 19:13 Glucose (Glucose 40%) 15 - 30 gm PO UD PRN; Protocol PRN Reason: Hypoglycemia Protocol Stop: 10/15/19 19:13 Bumetanide 1 mg/ Syringe 4 mls @ 4 mls/min IV DAILY@0900,1700 [facility] Stop: 10/16/19 16:59 Last Admin: 09/17/19 08:05 Dose: 4 mls/min Documented by: Insulin Aspart (Novolog Flexpen) 0 units SC ACHS [facility] Stop: 10/15/19 20:59 Last Admin: 09/17/19 12:29 Dose: 6 units Documented by: Insulin Glargine (Lantus Solostar Pen) 19 units SC HS [facility] Stop: 10/15/19 20:59 Last Admin: 09/17/19 08:06 Dose: 19 units Documented by: Losartan Potassium (Cozaar) 100 mg PO QAM [facility] Stop: 10/16/19 08:59 Last Admin: 09/17/19 08:05 Dose: 100 mg Documented by: Magnesium Hydroxide (Milk Of Magnesia) 30 ml PO Q12H PRN PRN Reason: Constipation Stop: 10/15/19 19:13 Miscellaneous (Carbohydrates For Hypoglycemia) 15 - 30 gm PO UD PRN PRN Reason: Hypoglycemia Protocol Stop: 10/15/19 19:13 Ondansetron HCl (Zofran) 4 mg IV Q6H PRN PRN Reason: Nausea Stop: 10/15/19 19:13 Polyethylene Glycol (Miralax Powder Packet) 17 gm PO DAILY PRN PRN Reason: Constipation Stop: 10/15/19 19:13 PG Care Time/CCT Total # of Minutes Spent Total Time Spent with Patient: Total time spent is greater than 50% in coordination of care (as documented) at patient's floor/unit and/or counseling patient: Coding Level of Care Code 86909 Subseq Hosp Care Lvl 3 Diagnoses Acute exacerbation of CHF (congestive heart failure) I50.9 Heart failure type: unspecified A-fib I48.91 CKD (chronic kidney disease), stage IV N18.4 Leg swelling M79.89 Heart aneurysm I25.3 Diabetes mellitus type 2 in obese E11.69; E66.9 (1) Acute exacerbation of CHF (congestive heart failure) Heart failure type: unspecified Qualified Code(s): I50.9 - Heart failure, unspecified
--- NOTE | 2019-09-17 16:36 | XCELERA ---
[id number] [id number]
[2019-09-18 06:55] LABS: Basophils # (auto) 0.05 K/uL (0-0.2); Eosinophils # (auto) 0.35 K/uL (0-0.5); Eosinophils % (auto) 7.1 %; Hematocrit (blood only) 42.4 % (42-52); Hemoglobin 11.9 g/dL (14.0-18.0); Immature Granulocytes # (auto) 0.01 K/uL (0.00-0.02); Immature Granulocytes % (auto) 0.2 %; Lymphocytes # (auto) 0.82 K/uL (1.2-3.4); Lymphocytes % (auto) 16.7 %; Mean Corpuscular Hemoglobin 26.8 pg (25-34); Mean Corpuscular Hgb Conc 28.1 g/dL (32-36); Mean Corpuscular Volume 95.5 fL (80-100); Mean Platelet Volume 10.2 fL (7.4-10.4); Monocytes # (auto) 0.81 K/uL (0.11-0.59); Monocytes % (auto) 16.5 %; Neutrophils # (auto) 2.88 K/uL (1.4-6.5); Neutrophils % (auto) 58.5 %; Platelet Count 147 K/uL (130-400); RDW Coefficient of Variation 19.9 % (11.5-14.5); RDW Standard Deviation 68.5 fL (36.4-46.3); Red Blood Count 4.44 M/uL (4.7-6.1); White Blood Count 4.92 K/uL (4.8-10.8)
[2019-09-18 07:27] LABS: Albumin Level 2.8 gm/dl (3.4-5.0); BUN Creatinine Ratio 17.4 (10-20); Calcium 9.1 mg/dl (8.5-10.1); Creatinine Clr Calc Pharmacy 27.7 ml/min; Est GFR (African American) 28.4; Est GFR (Non-African American) 24.5; Potassium 4.3 mmol/L (3.5-5.1)
[2019-09-18 07:30] LABS: Albumin Globulin Ratio 0.8 (0.9-2); Bilirubin,Total 0.8 mg/dl (0.2-1); Globulin 3.5 gm/dl (2.5-4.0); Total Protein 6.3 gm/dl (6.4-8.2)
[2019-09-18] MEDS: INSULIN ASPART 100 UNITS/ML 3 ML PEN SC SCH ×4 (08:21→20:59)
[2019-09-18] MEDS: ATENOLOL 50 MG TABLET PO SCH (09:04)
[2019-09-18] MEDS: LOSARTAN POTASSIUM 50 MG TAB PO SCH (09:05)
[2019-09-18] MEDS: APIXABAN 2.5 MG TAB PO SCH ×2 (09:05→20:45)
[2019-09-18] MEDS: BUMETANIDE 1 MG in SYRINGE 0 ML IV SCH ×2 (09:05→17:17)
[2019-09-18] MEDS: AMLODIPINE BESYLATE 5 MG TAB PO SCH (09:05)
--- NOTE | 2019-09-18 10:22 | Hospitalist Progress Note ---
Date of Service September 18, 2019 Assessment & Plan (1) Acute exacerbation of CHF (congestive heart failure): echocardiogram shows EF is 45%, so this is acute on chronic heart failure with reduced ejection fraction over weight by about 30-40 lbs according to patient at time of admission continue Bumex 1mg IV q12, negative 7 liters via diaz, Cr is holding at 2.35 K is stable daily weighs, strict I/O's, fluid restrict to 1200mL a day should prop up feet when in bed PT/OT consulted likely here a few days for monitoring while diuresing told the patient that Tuesday 09/19 would likely be the earliest day of discharge (2) A-fib: Continue apixaban 2.5 mg p.o. twice daily. HR controlled on monitor will downgrade to medical floor (3) CKD (chronic kidney disease), stage IV: Hold pantoprazole 40 mg p.o. twice daily since it may worsen kidney function in the setting of CHF exacerbation. Avoid nephrotoxic agents. Cr was 2.88 on admission, Cr has been stable between 2.35 and 2.55, it is 2.35 today, tolerating Bumex will follow very closely of note, he was only on Lasix 20mg daily on admission he would likely benefit from changing to Bumex on discharge, probably 1mg daily would be sufficient (4) Leg swelling: bilateral edema, slightly better today negative for DVT due to heart failure, CKD stage IV will stop antibiotics, no clear signs of infection, no fever, WBC normal two days in a row, no pain on exam (5) Diabetes mellitus type 2 in obese: Accu-Cheks before meals and at bedtime, sliding scale insulin NovoLog correction factor of 20 and carbohydrate ratio of 7. Continue insulin glargine 19 units subacute nightly. monitor for hypoglycemia, no episodes today Admission and Anticipated Discharge Date Admission Date: September 15, 2019 Anticipated date of discharge: 09/20/19 Subjective patient feels great, making a ton of urine via diaz breathing is stable he is eating well, ate scrambled eggs for breakfast moving his bowels since he has been here reviewed labs, Cr is stable at 2.35 on the Bumex BID reviewed I/O, he is negative 7000mL and weight down 15.6 lbs since admission he still has pitting edema, more fluid to give he asked about going home, discussed that he needs to get more fluid off we want to watch his renal function daily while we are being more aggressive with diuresis Review of Systems Review of Systems: All systems reviewed & are unremarkable except as noted in HPI & below Constitutional: no fever, no chills and no sweats Respiratory: no cough, no dyspnea and no dyspnea on exertion Cardiovascular: + edema; no chest pain Gastrointestinal: no abdominal pain, no nausea, no vomiting, no constipation and no diarrhea/loose stools Physical Exam Constitutional: WD/WN, vitals as above + overweight Eyes: PERRL, conjunctivae normal, anicteric sclerae ENMT: external ear and nose normal, oropharynx normal Neck: trachea midline, no thyromegaly Respiratory: normal respiratory effort, lungs clear to auscultation Cardiovascular: Rate/Rhythm: regular rate and regular rhythm Heart Sounds: normal S1 and normal S2; no murmur Extremities: normal capillary refill and + edema (pitting edema to the thighs bilaterally) Gastrointestinal (Abdomen): normal bowel sounds, soft, nontender, no hepatosplenomegaly Musculoskeletal: no cyanosis or clubbing, extremities motor strength 5/5 Skin: no rashes, warm and dry + erythema (bilateral venous stasis changes, more on the right lower leg) Neurologic: patellar DTR's 2+ bilat, sensation intact and PERRL, EOMI, accommodation nl, no face palsy, no dysarthria Psychiatric: A+Ox3, euthymic affect Lymphatic: no cervical or axillary lymphadenopathy Results & Data ([facility]) Vital Signs (Past 12 Hours) Vital Signs Temp Pulse Pulse Pulse Resp BP Pulse Ox 09/18/19 07:38 36.4 C L 78 19 113/66 91 09/18/19 07:27 72 09/18/19 03:51 36.6 C 76 18 102/49 L 91 09/17/19 23:31 68 09/17/19 23:12 36.6 C 57 L 19 120/66 93 Laboratory Results Laboratory Results - last 24 hr 09/17/19 09/17/19 09/17/19 12:11 16:29 20:18 WBC RBC Hgb Hct MCV MCH MCHC RDW Std Deviation RDW Coeff of Yaima Plt Count MPV Immature Gran % (Auto) Neut % (Auto) Lymph % (Auto) [place] % (Auto) Eos % (Auto) Baso % (Auto) Immature Gran # (Auto) Neut # (Auto) Lymph # (Auto) [place] # (Auto) Eos # (Auto) Baso # (Auto) Sodium Potassium Chloride Carbon Dioxide Anion Gap BUN Creatinine Est Cr Clr Drug Dosing Est GFR ( Amer) Est GFR (Non-Af Amer) BUN/Creatinine Ratio Glucose POC Glucose 94 90 116 H Calcium Total Bilirubin AST ALT Alkaline Phosphatase Total Protein Albumin Globulin Albumin/Globulin Ratio 09/18/19 09/18/19 09/18/19 06:32 06:32 07:32 WBC 4.92 RBC 4.44 L Hgb 11.9 L Hct 42.4 MCV 95.5 MCH 26.8 MCHC 28.1 L RDW Std Deviation 68.5 H RDW Coeff of Yaima 19.9 H Plt Count 147 MPV 10.2 Immature Gran % (Auto) 0.2 Neut % (Auto) 58.5 Lymph % (Auto) 16.7 [place] % (Auto) 16.5 Eos % (Auto) 7.1 Baso % (Auto) 1.0 Immature Gran # (Auto) 0.01 Neut # (Auto) 2.88 Lymph # (Auto) 0.82 L [place] # (Auto) 0.81 H Eos # (Auto) 0.35 Baso # (Auto) 0.05 Sodium 145 Potassium 4.3 Chloride 109 H Carbon Dioxide 31 Anion Gap 5.0 BUN 41 H Creatinine 2.35 H Est Cr Clr Drug Dosing 27.7 Est GFR ( Amer) 28.4 Est GFR (Non-Af Amer) 24.5 BUN/Creatinine Ratio 17.4 Glucose 115 H POC Glucose 161 H Calcium 9.1 Total Bilirubin 0.8 AST 17 ALT 14 Alkaline Phosphatase 105 Total Protein 6.3 L Albumin 2.8 L Globulin 3.5 Albumin/Globulin Ratio 0.8 L Medications Administered Current Inpatient Medications Acetaminophen (Tylenol) 650 mg PO Q4H PRN PRN Reason: Pain or Fever Stop: 10/15/19 19:13 Al Hydrox/Mg Hydrox/Simethicone (Maalox) 15 ml PO Q4H PRN PRN Reason: Dyspepsia Stop: 10/15/19 19:13 Albuterol (Ventolin Hfa) 2 puffs INH Q4H PRN PRN Reason: Shortness Of Breath Stop: 04/04/20 19:13 Amlodipine Besylate (Norvasc) 5 mg PO QAM [facility] Stop: 10/16/19 08:59 Last Admin: 09/18/19 09:05 Dose: 5 mg Documented by: Apixaban (Eliquis) 2.5 mg PO BID [facility] Stop: 10/15/19 20:59 Last Admin: 09/18/19 09:05 Dose: 2.5 mg Documented by: Atenolol (Tenormin) 50 mg PO QAM [facility] Stop: 10/16/19 08:59 Last Admin: 09/18/19 09:04 Dose: 50 mg Documented by: Dextrose (Dextrose 50%) 25 - 50 ml IV UD PRN; Protocol PRN Reason: Hypoglycemia Protocol Stop: 10/15/19 19:13 Glucagon (Glucagen) 1 mg SQ UD PRN; Protocol PRN Reason: Hypoglycemia Protocol Stop: 10/15/19 19:13 Glucose (Dex4 Glucose) 4 - 8 tabs PO UD PRN; Protocol PRN Reason: Hypoglycemia Protocol Stop: 10/15/19 19:13 Glucose (Glucose 40%) 15 - 30 gm PO UD PRN; Protocol PRN Reason: Hypoglycemia Protocol Stop: 10/15/19 19:13 Bumetanide 1 mg/ Syringe 4 mls @ 4 mls/min IV DAILY@0900,1700 [facility] Stop: 10/16/19 16:59 Last Admin: 09/18/19 09:05 Dose: 4 mls/min Documented by: Insulin Aspart (Novolog Flexpen) 0 units SC ACHS [facility] Stop: 10/15/19 20:59 Last Admin: 09/18/19 08:21 Dose: 8 units Documented by: Insulin Glargine (Lantus Solostar Pen) 19 units SC HS [facility] Stop: 10/15/19 20:59 Last Admin: 09/17/19 20:21 Dose: 19 units Documented by: Losartan Potassium (Cozaar) [facility] Stop: 10/16/19 08:59 Last Admin: 09/18/19 09:05 Dose: 100 mg Documented by: Magnesium Hydroxide (Milk Of Magnesia) 30 ml PO Q12H PRN PRN Reason: Constipation Stop: 10/15/19 19:13 Miscellaneous (Carbohydrates For Hypoglycemia) 15 - 30 gm PO UD PRN PRN Reason: Hypoglycemia Protocol Stop: 10/15/19 19:13 Ondansetron HCl (Zofran) 4 mg IV Q6H PRN PRN Reason: Nausea Stop: 10/15/19 19:13 Polyethylene Glycol (Miralax Powder Packet) 17 gm PO DAILY PRN PRN Reason: Constipation Stop: 10/15/19 19:13 PG Care Time/CCT Total # of Minutes Spent Total Time Spent with Patient: Total time spent is greater than 50% in coordination of care (as documented) at patient's floor/unit and/or counseling patient: Coding Level of Care Code 70289 Subseq Hosp Care Lvl 3 Diagnoses Acute exacerbation of CHF (congestive heart failure) I50.9 Heart failure type: unspecified A-fib I48.91 CKD (chronic kidney disease), stage IV N18.4 Leg swelling M79.89 Diabetes mellitus type 2 in obese E11.69; E66.9 (1) Acute exacerbation of CHF (congestive heart failure) Heart failure type: unspecified Qualified Code(s): I50.9 - Heart failure, unspecified
[2019-09-18] MEDS: INSULIN GLARGINE SOLOSTAR 100 UNITS/ML 3 ML PEN SC SCH (20:57)
[2019-09-19 06:36] LABS: Basophils # (auto) 0.03 K/uL (0-0.2); Basophils % (auto) 0.6 %; Eosinophils # (auto) 0.33 K/uL (0-0.5); Eosinophils % (auto) 6.8 %; Hematocrit (blood only) 42.9 % (42-52); Hemoglobin 11.9 g/dL (14.0-18.0); Lymphocytes # (auto) 0.89 K/uL (1.2-3.4); Lymphocytes % (auto) 18.3 %; Mean Corpuscular Hemoglobin 26.4 pg (25-34); Mean Corpuscular Hgb Conc 27.7 g/dL (32-36); Mean Corpuscular Volume 95.3 fL (80-100); Mean Platelet Volume 10.6 fL (7.4-10.4); Monocytes # (auto) 0.67 K/uL (0.11-0.59); Monocytes % (auto) 13.8 %; Neutrophils # (auto) 2.94 K/uL (1.4-6.5); Neutrophils % (auto) 60.5 %; Platelet Count 139 K/uL (130-400); RDW Coefficient of Variation 19.6 % (11.5-14.5); RDW Standard Deviation 68.1 fL (36.4-46.3); White Blood Count 4.86 K/uL (4.8-10.8)
[2019-09-19 06:59] LABS: Albumin Level 2.7 gm/dl (3.4-5.0); BUN Creatinine Ratio 18.9 (10-20); Calcium 9.3 mg/dl (8.5-10.1); Creatinine Clr Calc Pharmacy 29.7 ml/min; Est GFR (African American) 31.4; Est GFR (Non-African American) 27.1
[2019-09-19 07:01] LABS: Albumin Globulin Ratio 0.7 (0.9-2); Bilirubin,Total 0.9 mg/dl (0.2-1); Globulin 3.7 gm/dl (2.5-4.0); Total Protein 6.4 gm/dl (6.4-8.2)
[2019-09-19] MEDS: BUMETANIDE 1 MG in SYRINGE 0 ML IV SCH ×2 (08:24→17:22)
[2019-09-19] MEDS: INSULIN ASPART 100 UNITS/ML 3 ML PEN SC SCH ×4 (08:24→20:40)
[2019-09-19] MEDS: APIXABAN 2.5 MG TAB PO SCH ×2 (08:24→20:40)
[2019-09-19] MEDS: LOSARTAN POTASSIUM 50 MG TAB PO SCH (10:04)
[2019-09-19] MEDS: AMLODIPINE BESYLATE 5 MG TAB PO SCH (10:05)
[2019-09-19] MEDS: ATENOLOL 50 MG TABLET PO SCH (10:05)
--- NOTE | 2019-09-19 19:10 | Hospitalist Progress Note ---
Date of Service September 19, 2019 Assessment & Plan (1) Acute exacerbation of CHF (congestive heart failure): EF 40-45% on echo this admission. cardiomyopathy - 2nd to a.fib? other? (CAD, etc) currently on atenolol - will change to toprol xl tomorrow am cont diuresis - still volume up MARKED 30+ pound weight loss since admission not FARAZ or ARB candidate due to CKD (2) A-fib: Continue apixaban 2.5 mg p.o. twice daily. Change beta jadon as above controlled (3) CKD (chronic kidney disease), stage IV: Holding pantoprazole 40 mg p.o. twice daily since it may worsen kidney function Cr 2.1 today BMP in am (4) Leg swelling: dopplers of legs negative for DVT earlier this stay due to congestive heart failure and CKD stage IV (5) Diabetes mellitus type 2 in obese: controlled cont basal-bolus regimen of insulin (6) HTN (hypertension): changing beta jadon cont other agents as previous (7) DVT prophylaxis: eliquis 2.5mg BID updated at bedside cont PT/OT Admission and Anticipated Discharge Date Admission Date: September 15, 2019 Anticipated date of discharge: 09/21/19 Subjective patient very anxious to go home soon he feels good with that said he continues with NC O2 requirement not on telemetry at this time denies cough mild JASSO w/ exertion eating well Review of Systems Constitutional: no fever Respiratory: + dyspnea on exertion Cardiovascular: no chest pain Gastrointestinal: no abdominal pain Physical Exam Constitutional: no acute distress and no altered mental status ENMT: external ear and nose normal, oropharynx normal Respiratory: no respiratory distress Auscultation: + crackles (soft, bases ); no wheezes Cardiovascular: Rate/Rhythm: regular rate and + irregularly irregular Heart Sounds: normal S1 and normal S2; no murmur Vessels: + JVD, posterior tibial pulses present and dorsalis pedis pulses present Extremities: + edema (3+ b/l legs ) Gastrointestinal (Abdomen): normal bowel sounds, soft, nontender, no hepatosplenomegaly Inspection/Auscultation: + abdomen distended (body wall edema?) Psychiatric: A+Ox3, euthymic affect Results & Data ([facility]) Vital Signs (Past 12 Hours) Vital Signs Temp Pulse Resp BP Pulse Ox 09/19/19 18:21 36.4 C L 74 18 161/53 H 96 09/19/19 15:24 36.5 C 67 20 125/73 96 09/19/19 09:45 78 138/74 09/19/19 07:55 36.6 C 48 L 20 120/75 91 Laboratory Results Laboratory Results - last 24 hr 09/18/19 09/19/19 09/19/19 20:05 06:10 06:10 WBC 4.86 RBC 4.50 L Hgb 11.9 L Hct 42.9 MCV 95.3 MCH 26.4 MCHC 27.7 L RDW Std Deviation 68.1 H RDW Coeff of Yaima 19.6 H Plt Count 139 MPV 10.6 H Immature Gran % (Auto) 0.0 Neut % (Auto) 60.5 Lymph % (Auto) 18.3 [place] % (Auto) 13.8 Eos % (Auto) 6.8 Baso % (Auto) 0.6 Immature Gran # (Auto) 0.00 Neut # (Auto) 2.94 Lymph # (Auto) 0.89 L [place] # (Auto) 0.67 H Eos # (Auto) 0.33 Baso # (Auto) 0.03 Sodium 143 Potassium 4.0 Chloride 107 Carbon Dioxide 31 Anion Gap 5.0 BUN 41 H Creatinine 2.16 H Est Cr Clr Drug Dosing 29.7 Est GFR ( Amer) 31.4 Est GFR (Non-Af Amer) 27.1 BUN/Creatinine Ratio 18.9 Glucose 97 POC Glucose 216 H Calcium 9.3 Total Bilirubin 0.9 AST 17 ALT 15 Alkaline Phosphatase 112 Total Protein 6.4 Albumin 2.7 L Globulin 3.7 Albumin/Globulin Ratio 0.7 L 09/19/19 09/19/19 09/19/19 07:36 11:40 16:30 WBC RBC Hgb Hct MCV MCH MCHC RDW Std Deviation RDW Coeff of Yaima Plt Count MPV Immature Gran % (Auto) Neut % (Auto) Lymph % (Auto) [place] % (Auto) Eos % (Auto) Baso % (Auto) Immature Gran # (Auto) Neut # (Auto) Lymph # (Auto) [place] # (Auto) Eos # (Auto) Baso # (Auto) Sodium Potassium Chloride Carbon Dioxide Anion Gap BUN Creatinine Est Cr Clr Drug Dosing Est GFR ( Amer) Est GFR (Non-Af Amer) BUN/Creatinine Ratio Glucose POC Glucose 101 H 143 H 198 H Calcium Total Bilirubin AST ALT Alkaline Phosphatase Total Protein Albumin Globulin Albumin/Globulin Ratio PG Care Time/CCT Total # of Minutes Spent Total Time Spent with Patient: Total time spent is greater than 50% in coordination of care (as documented) at patient's floor/unit and/or counseling patient: Coding Level of Care Code 96532 Subseq Hosp Care Lvl 2 Diagnoses Acute exacerbation of CHF (congestive heart failure) I50.23 Heart failure type: systolic A-fib I48.21 Atrial fibrillation type: permanent CKD (chronic kidney disease), stage IV N18.4 Leg swelling M79.89 Diabetes mellitus type 2 in obese E11.69; E66.9 HTN (hypertension) I10 Hypertension type: essential hypertension DVT prophylaxis Z29.9 (1) Acute exacerbation of CHF (congestive heart failure) Heart failure type: systolic Qualified Code(s): I50.23 - Acute on chronic systolic (congestive) heart failure (2) A-fib Atrial fibrillation type: permanent Qualified Code(s): I48.21 - Permanent atrial fibrillation (3) HTN (hypertension) Hypertension type: essential hypertension Qualified Code(s): I10 - Essential (primary) hypertension
[2019-09-19] MEDS: INSULIN GLARGINE SOLOSTAR 100 UNITS/ML 3 ML PEN SC SCH (20:41)
[2019-09-20 06:51] LABS: Calcium 8.5 mg/dl (8.5-10.1); Est GFR (African American) 35.6; Est GFR (Non-African American) 30.7; Magnesium 1.9 mg/dl (1.8-2.4); Potassium 3.9 mmol/L (3.5-5.1)
[2019-09-20] MEDS: APIXABAN 2.5 MG TAB PO SCH ×2 (08:15→20:43)
[2019-09-20] MEDS: BUMETANIDE 1 MG in SYRINGE 0 ML IV SCH ×2 (08:15→17:26)
[2019-09-20] MEDS: METOPROLOL TARTRATE 50 MG TAB PO SCH ×2 (08:15→20:41)
[2019-09-20] MEDS: LOSARTAN POTASSIUM 50 MG TAB PO SCH (08:15)
[2019-09-20] MEDS: AMLODIPINE BESYLATE 5 MG TAB PO SCH (08:16)
[2019-09-20] MEDS: INSULIN ASPART 100 UNITS/ML 3 ML PEN SC SCH ×4 (08:18→20:41)
[2019-09-20] MEDS ORDERED: BUMETANIDE 1 MG in SYRINGE 0 ML IV ONE (17:00)
[2019-09-20] MEDS: INSULIN GLARGINE SOLOSTAR 100 UNITS/ML 3 ML PEN SC SCH (20:41)
--- NOTE | 2019-09-20 20:48 | Hospitalist Progress Note ---
Date of Service September 20, 2019 Assessment & Plan (1) Acute exacerbation of CHF (congestive heart failure): ongoing but volume status continues to improve daily. still with hypervolemia, however. EF 40-45% on echo this admission. cardiomyopathy - 2nd to a.fib? other? (CAD, etc) atenolol changed to metoprolol 50 BID today cont diuresis - give additional 1mg of bumex today to see if diuresis can be enhanced MARKED 30+ pound weight loss since admission not FARAZ or ARB candidate due to CKD (2) A-fib: Continue apixaban 2.5 mg p.o. twice daily. Change beta jadon as above controlled (3) CKD (chronic kidney disease), stage IV: Holding pantoprazole 40 mg p.o. twice daily since it may worsen kidney function Cr improved today with diuresis to 1.9 BMP in am (4) Leg swelling: dopplers of legs negative for DVT earlier this stay due to congestive heart failure and CKD stage IV (5) Diabetes mellitus type 2 in obese: controlled except for daytime BSGs increase novolog correction & carb ratio cont lantus as is (6) HTN (hypertension): changing beta jadon cont other agents as previous controlled (7) DVT prophylaxis: eliquis 2.5mg BID updated at bedside cont PT/OT progressing Admission and Anticipated Discharge Date Admission Date: September 15, 2019 Anticipated date of discharge: 09/21/19 Subjective pt w/o any new complaints denies any dyspnea at rest or w/ activity still w/ considerable LE edema during my visit I removed his O2 and 5-6 minutes later O2 sats were 90-92% in RA at bedside & updated Review of Systems Constitutional: no fever, no chills, no fatigue and no anorexia Respiratory: no cough and no dyspnea Cardiovascular: no chest pain Gastrointestinal: no abdominal pain Physical Exam Constitutional: no acute distress and no altered mental status ENMT: external ear and nose normal, oropharynx normal Respiratory: no respiratory distress Auscultation: + crackles (soft, bases ); no wheezes Cardiovascular: Rate/Rhythm: regular rate and + irregularly irregular Heart Sounds: normal S1 and normal S2; no murmur Vessels: + JVD, posterior tibial pulses present and dorsalis pedis pulses present Extremities: + edema (3+ b/l legs ) Gastrointestinal (Abdomen): normal bowel sounds, soft, nontender, no hepatosplenomegaly Inspection/Auscultation: + abdomen distended (body wall edema vs ascites ) Psychiatric: A+Ox3, euthymic affect Results & Data ([facility]) Vital Signs (Past 12 Hours) Vital Signs Temp Pulse Resp BP Pulse Ox 09/20/19 18:55 36.4 C L 92 H 18 149/77 H 91 09/20/19 15:12 36.6 C 86 18 145/71 H 90 Laboratory Results Laboratory Results - last 24 hr 09/20/19 09/20/19 09/20/19 05:07 08:05 11:49 Sodium 143 Potassium 3.9 Chloride 107 Carbon Dioxide 33 H Anion Gap 3.0 BUN 43 H Creatinine 1.95 H Est Cr Clr Drug Dosing 33.0 Est GFR ( Amer) 35.6 Est GFR (Non-Af Amer) 30.7 BUN/Creatinine Ratio 22.0 H Glucose 77 POC Glucose 76 96 Calcium 8.5 Magnesium 1.9 09/20/19 09/20/19 16:49 20:13 Sodium Potassium Chloride Carbon Dioxide Anion Gap BUN Creatinine Est Cr Clr Drug Dosing Est GFR ( Amer) Est GFR (Non-Af Amer) BUN/Creatinine Ratio Glucose POC Glucose 155 H 181 H Calcium Magnesium PG Care Time/CCT Total # of Minutes Spent Total Time Spent with Patient: Total time spent is greater than 50% in coordination of care (as documented) at patient's floor/unit and/or counseling patient: Coding Level of Care Code 38586 Subseq Hosp Care Lvl 2 Diagnoses Acute exacerbation of CHF (congestive heart failure) I50.23 Heart failure type: systolic A-fib I48.21 Atrial fibrillation type: permanent CKD (chronic kidney disease), stage IV N18.4 Leg swelling M79.89 Diabetes mellitus type 2 in obese E11.69; E66.9 HTN (hypertension) I10 Hypertension type: essential hypertension DVT prophylaxis Z29.9 (1) Acute exacerbation of CHF (congestive heart failure) Heart failure type: systolic Qualified Code(s): I50.23 - Acute on chronic systolic (congestive) heart failure (2) A-fib Atrial fibrillation type: permanent Qualified Code(s): I48.21 - Permanent atrial fibrillation (3) HTN (hypertension) Hypertension type: essential hypertension Qualified Code(s): I10 - Essential (primary) hypertension
[2019-09-21 06:34] LABS: BUN Creatinine Ratio 22.1 (10-20); Calcium 9.4 mg/dl (8.5-10.1); Creatinine Clr Calc Pharmacy 29.7 ml/min; Est GFR (African American) 31.6; Est GFR (Non-African American) 27.3; Potassium 4.6 mmol/L (3.5-5.1)
[2019-09-21] MEDS: BUMETANIDE 1 MG in SYRINGE 0 ML IV SCH ×2 (08:33→16:06)
[2019-09-21] MEDS: APIXABAN 2.5 MG TAB PO SCH ×2 (08:34→21:42)
[2019-09-21] MEDS: METOPROLOL TARTRATE 50 MG TAB PO SCH ×2 (08:34→21:45)
[2019-09-21] MEDS: LOSARTAN POTASSIUM 50 MG TAB PO SCH (08:34)
[2019-09-21] MEDS: AMLODIPINE BESYLATE 5 MG TAB PO SCH (08:34)
[2019-09-21] MEDS: INSULIN ASPART 100 UNITS/ML 3 ML PEN SC SCH ×4 (08:40→21:39)
[2019-09-21] MEDS ORDERED: BUMETANIDE 1 MG in SYRINGE 0 ML IV SCH (09:00)
[2019-09-21] MEDS: INSULIN GLARGINE SOLOSTAR 100 UNITS/ML 3 ML PEN SC SCH (21:39)
--- NOTE | 2019-09-21 21:41 | Hospitalist Progress Note ---
Date of Service September 21, 2019 Assessment & Plan (1) Acute exacerbation of CHF (congestive heart failure): continues to improve. has lost 30-35 pounds of fluid since admission. still with hypervolemia, however, on examination. EF 40-45% on echo this admission. cardiomyopathy - 2nd to a.fib? other? (CAD, etc) atenolol changed to metoprolol 50 BID - tolerating such; HRs controlled; change IR to XL prior to discharge cont diuresis - give additional 1mg of bumex this am follow UOP not FARAZ or ARB candidate due to CKD I am uncertain of dry weight but suspect we are approaching such re-eval day to day (2) A-fib: Continue apixaban 2.5 mg p.o. twice daily. Changed beta jadon as above controlled (3) CKD (chronic kidney disease), stage IV: Holding pantoprazole 40 mg p.o. twice daily since it may worsen kidney function Cr at baseline today bmp am (4) Leg swelling: dopplers of legs negative for DVT earlier this stay due to congestive heart failure and CKD stage IV (5) Diabetes mellitus type 2 in obese: controlled except for daytime BSGs increased novolog correction & carb ratio yesterday cont lantus as is (6) HTN (hypertension): changed beta jadon yesterday cont other agents as previous controlled (7) DVT prophylaxis: eliquis 2.5mg BID cont PT/OT he remains off NC O2 progressing discharge - day-to-day decision Admission and Anticipated Discharge Date Admission Date: September 15, 2019 Anticipated date of discharge: 09/23/19 Subjective patient feeling well. no cough, dyspnea, JASSO or orthopnea. feels good. still w/ LE edema but less than previous. abd swelling also improved. Review of Systems Constitutional: no fatigue Respiratory: no dyspnea and no dyspnea on exertion Cardiovascular: no chest pain Gastrointestinal: no abdominal pain Physical Exam Constitutional: no acute distress and no altered mental status ENMT: external ear and nose normal, oropharynx normal Respiratory: no respiratory distress Auscultation: + crackles (soft, bases -- improved from prior exam); no wheezes Cardiovascular: Rate/Rhythm: regular rate and + irregularly irregular Heart Sounds: normal S1 and normal S2; no murmur Vessels: + JVD (improved from yesterday's exam), posterior tibial pulses present and dorsalis pedis pulses present Extremities: + edema (2+ b/l legs ) Gastrointestinal (Abdomen): normal bowel sounds, soft, nontender, no hepatosplenomegaly Inspection/Auscultation: + abdomen distended (improved) Psychiatric: A+Ox3, euthymic affect Results & Data ([facility]) Vital Signs (Past 12 Hours) Vital Signs Temp Pulse Resp BP Pulse Ox 09/21/19 14:53 36.5 C 53 L 18 127/78 93 Laboratory Results Laboratory Results - last 24 hr 09/21/19 09/21/19 09/21/19 05:29 07:59 11:58 Sodium 141 Potassium 4.6 D Chloride 103 Carbon Dioxide 35 H Anion Gap 3.0 BUN 48 H Creatinine 2.15 H Est Cr Clr Drug Dosing 29.7 Est GFR ( Amer) 31.6 Est GFR (Non-Af Amer) 27.3 BUN/Creatinine Ratio 22.1 H Glucose 159 H POC Glucose 134 H 151 H Calcium 9.4 09/21/19 09/21/19 16:57 20:14 Sodium Potassium Chloride Carbon Dioxide Anion Gap BUN Creatinine Est Cr Clr Drug Dosing Est GFR ( Amer) Est GFR (Non-Af Amer) BUN/Creatinine Ratio Glucose POC Glucose 176 H 246 H Calcium PG Care Time/CCT Total # of Minutes Spent Total Time Spent with Patient: Total time spent is greater than 50% in coordination of care (as documented) at patient's floor/unit and/or counseling patient: Coding Level of Care Code 24917 Subseq Hosp Care Lvl 2 Diagnoses Acute exacerbation of CHF (congestive heart failure) I50.23 Heart failure type: systolic A-fib I48.21 Atrial fibrillation type: permanent CKD (chronic kidney disease), stage IV N18.4 Leg swelling M79.89 Diabetes mellitus type 2 in obese E11.69; E66.9 HTN (hypertension) I10 Hypertension type: essential hypertension DVT prophylaxis Z29.9 (1) Acute exacerbation of CHF (congestive heart failure) Heart failure type: systolic Qualified Code(s): I50.23 - Acute on chronic systolic (congestive) heart failure (2) A-fib Atrial fibrillation type: permanent Qualified Code(s): I48.21 - Permanent atrial fibrillation (3) HTN (hypertension) Hypertension type: essential hypertension Qualified Code(s): I10 - Essential (primary) hypertension
[2019-09-22 06:39] LABS: BUN Creatinine Ratio 22.4 (10-20); Calcium 9.3 mg/dl (8.5-10.1); Creatinine Clr Calc Pharmacy 31.3 ml/min; Est GFR (African American) 33.9; Est GFR (Non-African American) 29.2
[2019-09-22] MEDS: APIXABAN 2.5 MG TAB PO SCH (08:39)
[2019-09-22] MEDS: LOSARTAN POTASSIUM 50 MG TAB PO SCH (08:39)
[2019-09-22] MEDS: BUMETANIDE 2 MG in SYRINGE 0 ML IV SCH ×2 (08:39→15:44)
[2019-09-22] MEDS: AMLODIPINE BESYLATE 5 MG TAB PO SCH (08:39)
[2019-09-22] MEDS: INSULIN ASPART 100 UNITS/ML 3 ML PEN SC SCH ×3 (08:40→17:41)
[2019-09-22] MEDS ORDERED: INSULIN GLARGINE SOLOSTAR 100 UNITS/ML 3 ML PEN SC SCH (09:00)
[2019-09-22] MEDS ORDERED: METOPROLOL SUCC 50MG EXT REL TAB PO SCH (09:00)
[2019-09-22] MEDS ORDERED: Nursing to Pharmacy Communication ONE (16:00)
--- NOTE | 2019-09-22 19:39 | Discharge Summary ---
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 Patient reports gaining at least 30 pounds in the past 2 months. Patient reports that his shortness of breath is worse on exertion and he has difficulty getting around in his house due to shortness of breath. Patient reports having a right lower extremity cellulitis for approximately 3 to 4 days and he was given Keflex 500 mg p.o. daily by his PCP at [place]. Patient denies fever, chills, chest pain, abdominal pain, frequency, urgency. Labs are reviewed: WBC 6.44, hemoglobin 12.3, hematocrit 43.5, platelets 188, PT 11.9, INR 1.2, APTT 32.8, sodium 142, potassium 4.8, chloride 111, carbon dioxide 26, anion gap 5, BUN 44, creatinine 2.88 (there is no other value in the system available since patient goes to [place] and his records are not sent with him, but patient reports that he has last cleaner at [place] who follows him every couple of months), GFR 19.2, calcium 8.6, magnesium 2.4, total bilirubin 0.9, AST 20, ALT 16, alkaline phosphatase 126, troponin 0.015, BNP 6662, total protein 6.8, albumin 3.3, globulin 3.5. Urine is yellow clear 3+ blood, leukocyte Estrace trace, urine WBCs 1-5, RBCs 30. Chest x-rays pulmonary vascular congestion with trace bilateral pleural effusion. Principal Diagnosis acute/chronic systolic CHF Discharge Exam Constitutional no acute distress and no altered mental status ENMT external ear and nose normal, oropharynx normal Respiratory no respiratory distress Auscultation: + crackles (minimal bases only -- improved from prior exam); no wheezes Cardiovascular Rate/Rhythm: regular rate and + irregularly irregular Heart Sounds: normal S1 and normal S2; no murmur Vessels: posterior tibial pulses present and dorsalis pedis pulses present; no JVD Extremities: + edema (1-2+ b/l legs ) Gastrointestinal (Abdomen) normal bowel sounds, soft, nontender, no hepatosplenomegaly Inspection/Auscultation: + abdomen distended (improved) Psychiatric A+Ox3, euthymic affect Discharge Data Allergies Allergy/AdvReac Type Severity Reaction Status Date / Time Sulfa (Sulfonamide Allergy Intermediate Hives Verified 09/22/19 08:00 Antibiotics) chlorpropamide Allergy Unknown Unknown Verified 09/15/19 17:09 chlorthalidone Allergy Unknown Unknown Verified 09/15/19 17:09 pravastatin AdvReac Mild Muscle Pain Verified 09/22/19 08:00 simvastatin [From Zocor] AdvReac Mild Muscle Pain Verified 09/22/19 08:00 Consultations [facility] CHF Program Referral PT, OT Ordered Studies 1. venous dopplers of legs - negative for DVT. 2. echocardiogram - * EF 40-45% - but mention in report that a.fib made EF estimation difficult * IVC dilated * normal RV function Hospital Course (1) Acute exacerbation of CHF (congestive heart failure): acute/chronic systolic CHF. EF 40-45% on echo. Diuresed nearly 30-35 pounds of fluid over the 7-day admission. Cardiomyopathy - 2nd to a.fib? other? (CAD, etc) Atenolol changed to metoprolol tartrate 50 BID while here - tolerated such; HRs nicely controlled; changed IR to XL prior to discharge. Continue losartan 100mg daily as previous. At discharge I recommended 2mg of bumex orally daily at home. Lasix was discontinued. Daily weights, salt/fluid restriction, and close outpatient f/u all recommended. Decompensation likely due to noncompliance with diet/meds, and compounded by his CKD. Consider ischemic evaluation as outpatient given the depressed EF and uncertainty surrounding its cause. Patient was given the option of following with [facility] CHF clinic vs the CHF clinic with the [place]. He opted for the [place] system; advised to f/u with them within 1 week of discharge. (2) A-fib: Continue apixaban 2.5 mg p.o. twice daily. Changed beta jadon to metoprolol xl from atenolol. Rates were controlled nicely during the visit. (3) CKD (chronic kidney disease), stage IV: Creatinine remained stable during this stay even in the face of his copious diuresis. Baseline Cr is not fully certain but at discharge his creatinine was 2. Admission Cr was 2.8 (Cr improved with diuresis). Patient will have a follow-up BMP in 24 hours post-discharge to ensure stability. (4) Leg swelling: dopplers of legs negative for DVT. due to congestive heart failure and CKD stage IV. cannot rule out that amlodipine could be contributing too. (5) Diabetes mellitus type 2 in obese: cont lantus and novolog. Hba1c was 6.7%. (6) HTN (hypertension): controlled with BB, ARB, and amlodipine. Of note - on the evening of discharge I highly recommended to the patient that he remain hospitalized for ongoing diuresis. Earlier in the day he had walked the hallway and O2 sats had dropped to <88%. His son tried to also encourage him to stay but the patient was adamant about d/c home that night. I advised him that I felt he needed more time in the hospital - still would not comply. He did agree to follow-up blood work the next day to ensure his labs were stable. Total Time Total Time Spent Total Time Spent (In Minutes): 45 Total Time Includes: Examination of the Patient, Discharge Planning and Medication Reconciliation Discharge Plan Discharge Items Patient Disposition: Home - Self-Care Reason For Visit: fluid retention Discharge Diagnosis: shortness of breath and fluid retention due to congestive heart failure and chronic kidney disease Activity: As commented below Activity Comment: gradually increase your activities over the next week Non-emergency contact: Primary Care Provider Call non-emergency contact if: you have any medication questions, your symptoms worsen and you have a fever Follow-up/Referrals: Priti Saldivar MD [Primary Care Provider] - (Please call to schedule follow up appointment with primary care provider within 5 days ) Diet: Carb Consistent or DM2 and Heart Healthy Fluids: 1500ml (6 cups) Addtl Attending Provider Instructions: You were treated for severe fluid retention. You lost about 35 pounds of fluid weight while here. Your fluid retention was due to congestive heart failure and chronic kidney disease. You will need to take a larger dose of diuretic (water pill) to keep fluid off. In addition, I recommend that you watch your salt intake carefully - take in no more than 2000mg in 24 hours. Limit fluids to 1500cc per day or less (1.5 liters). Check your weight EVERY MORNING on the same scale. Use the bathroom first, empty your bladder, then check your weight. Do this as soon as you wake up each day. Keep a log of your weights. Call your doctors if you gain more than 3 pounds in 1-2 days. This is typically fluid weight gain from your congestive heart failure. Recommendations - 1. take bumetanide 2mg every morning; this is your water pill/diuretic. New prescription given. 2. take metoprolol xl 50mg once daily for your heart. New prescription given. 3. STOP your furosemide. 4. STOP your atenolol. 5. have a blood draw on 09/23/2019. You can go to the [place] office for this. Bring the paper slip with you. 6. Due to coronavirus concerns avoid unnecessary travel, avoid large gatherings of people, and wash your hands frequently. The [facility] website has excellent information for seniors on prevention of this illness. If possible I would wear a mask when you go to the doctor's office. 7. When you see your doctors have them recheck your oxygen level WITH WALKING. Your oxygen level today, 09/22/19, was borderline low with walking (dropped below 90%). Follow-up -- see both the performance makeup artist AND your primary care doctor -- both within 1 week. Congestive heart failure instructions -- Call 911 and go to the Emergency Room if: * You have tightness or pain in your chest that does not go away with rest or Nitroglycerin * You are very short of breath even with rest Call your doctor if any of the following symptoms or problems start or get worse: * Shortness of breath or difficulty breathing * Wake up at night short of breath * Chest pain * Cough * Swelling of your hands, fee, or legs * More fatigued or tired with your normal activity * Palpitations - sudden fast heart beats WEIGHT * Weigh yourself every morning after using the bathroom. * Use the same scale. * Wear the same amount of clothing. * Write your weight down on your chart. * Call your doctor if you gain more than 3 pounds in 1-2 days. This is often a sign of fluid weight gain. MEDICATIONS * Use this discharge instruction sheet for instructions. * Take your medications at the time your doctor ordered. * Do not skip a dose of your medicines. * If you miss a dose of medicine, take as soon as possible, but DO NOT DOUBLE A DOSE. * Read your medicine information when you get home. * Know all of the side effects of your medicine. * Call your doctor's office if you have any side effects. * Be sure all of your doctors know what medicine and herbs you take (including cold, flu, and herbal medicine). * Pain Medicine: If you do not get relief from your pain, please call your doctor for help. Take the following with you to your follow-up doctor appointments: * Weight Chart * Medication List * List of questions Do not drink excessive alcohol, beer or wine. Pending Studies at Discharge: No Stand-Alone Forms: My [facility] [employer], Smoking Cessation Medications and DC Order Prescriptions: New metoprolol succinate 50 mg Tablet Extended Release 24 Hr 50 mg PO QAM Qty: 30 RF: 2 bumetanide 2 mg tablet 2 mg PO QAM Qty: 30 RF: 2 Continued amlodipine 5 mg Tablet 5 mg PO QAM RF: 0 albuterol sulfate 90 mcg/actuation Hfa Aerosol Inhaler 2 puff INHALATION 6XD PRN (Reason: Shortness Of Breath) RF: 0 losartan 100 mg Tablet 100 mg PO QAM RF: 0 apixaban 2.5 mg Tablet 2.5 mg PO BID RF: 0 Lantus U-100 Insulin 100 unit/mL Solution 35 unit SUBCUT HS RF: 0 insulin aspart U-100 [Novolog U-100 Insulin aspart] 100 unit/mL Solution 6 unit SUBCUT QAM RF: 0 insulin aspart U-100 [Novolog U-100 Insulin aspart] 100 unit/mL Solution 10 unit SUBCUT QPM RF: 0 pantoprazole 40 mg Tablet,Delayed Release (Dr/Ec) 40 mg PO BID RF: 0 Discontinued cephalexin 500 mg Capsule 500 mg PO DAILY RF: 0 furosemide 20 mg Tablet 20 mg PO QAM RF: 0 atenolol 50 mg Tablet 50 mg PO QAM RF: 0 Discharge Orders: Discharge Order (Routine); Ordered 09/22/19 Ordered By: Benjy Tomlinson/Other Patient Handouts: Managing Your Glucose Level for Diabetes and Kidney Disease, Heart Failure Making Changes to Your Diet Admission Data Admit Date/Time: 09/15/19 17:16 Attending Provider: Benjy Pretty Admit Provider: Romina Mendez Primary Care Provider: Priti Saldivar Other Providers: Romina Mendez ; Priti Owens Other Interventions: Discharge Summary Assessment (RN) Last Done: 09/22/19 19:53 DC Date/Time DO NOT enter until pt leaves facility: 09/22/19 20:34 Coding Level of Care Code D/C Day Management >30 mins Diagnoses Acute exacerbation of CHF (congestive heart failure) I50.23 Heart failure type: systolic A-fib I48.21 Atrial fibrillation type: permanent CKD (chronic kidney disease), stage IV N18.4 Leg swelling M79.89 Diabetes mellitus type 2 in obese E11.69; E66.9 HTN (hypertension) I10 Hypertension type: essential hypertension
== END 2019-09-22 20:34 | disposition home or self-care (01) | DRG 291 ==
LOC: ED 14:46 → 2S 17:16 → SUATTDRO 17:16 → 2S 18:45 → 2N 09-18 12:36 → 4W 09-19 18:08